=== PATIENT | male | born 1965 | race Caucasian/White ===

== ENCOUNTER 2021-11-07 13:23 | Outpatient (CLI) | payer BC, SELFPAY | END 2021-11-07 13:24 | disposition home or self-care (01) | PROVIDERS: PCP Family Medicine; Visit Provider Nurse Practitioner Family | DX: Q82.0 Hereditary lymphedema (principal); I87.331 Chronic venous hypertension (idiopathic) with ulcer and inflammation of right lower extremity; L97.812 Non-pressure chronic ulcer of other part of right lower leg with fat layer exposed | CPT/HCPCS: 11042; 11045; 99213 ==

== ENCOUNTER 2021-11-14 13:08 | Outpatient (CLI) | payer BC, SELFPAY | END 2021-11-14 13:09 | disposition home or self-care (01) | LOC: WOUND 13:08 | PROVIDERS: PCP Family Medicine; Visit Provider Nurse Practitioner Family | DX: I87.331 Chronic venous hypertension (idiopathic) with ulcer and inflammation of right lower extremity (principal); L97.812 Non-pressure chronic ulcer of other part of right lower leg with fat layer exposed; I89.0 Lymphedema, not elsewhere classified; L97.512 Non-pressure chronic ulcer of other part of right foot with fat layer exposed; L03.031 Cellulitis of right toe | CPT/HCPCS: 11042; 11045; 17250 ==

== ENCOUNTER 2021-11-21 12:53 | Outpatient (CLI) | payer BC, SELFPAY | END 2021-11-21 12:54 | disposition home or self-care (01) | PROVIDERS: PCP Family Medicine; Visit Provider Nurse Practitioner Family | DX: I87.331 Chronic venous hypertension (idiopathic) with ulcer and inflammation of right lower extremity (principal); L97.812 Non-pressure chronic ulcer of other part of right lower leg with fat layer exposed; E13.9 Other specified diabetes mellitus without complications | CPT/HCPCS: 11042; 11045 ==

== ENCOUNTER 2021-12-01 08:26 | Outpatient (CLI) | payer BC, SELFPAY | END 2021-12-01 08:27 | disposition home or self-care (01) | LOC: WOUND 08:26 | PROVIDERS: PCP Family Medicine; Visit Provider Physician Assistant Surgical | DX: I87.331 Chronic venous hypertension (idiopathic) with ulcer and inflammation of right lower extremity (principal); L97.812 Non-pressure chronic ulcer of other part of right lower leg with fat layer exposed; Q82.0 Hereditary lymphedema | CPT/HCPCS: 11042; 11045 ==

== ENCOUNTER 2021-12-05 13:08 | Outpatient (CLI) | payer BC, SELFPAY | END 2021-12-05 13:09 | disposition home or self-care (01) | LOC: WOUND 13:09 | PROVIDERS: PCP Family Medicine; Visit Provider Nurse Practitioner Family | DX: I87.331 Chronic venous hypertension (idiopathic) with ulcer and inflammation of right lower extremity (principal); L97.812 Non-pressure chronic ulcer of other part of right lower leg with fat layer exposed; E13.621 Other specified diabetes mellitus with foot ulcer; L97.512 Non-pressure chronic ulcer of other part of right foot with fat layer exposed | CPT/HCPCS: 11042; 11045; 97597 ==

== ENCOUNTER 2021-12-12 14:19 | Outpatient (CLI) | payer BC, SELFPAY | END 2021-12-12 14:20 | disposition home or self-care (01) | LOC: WOUND 14:20 | PROVIDERS: PCP Family Medicine; Visit Provider Nurse Practitioner Family | DX: I87.331 Chronic venous hypertension (idiopathic) with ulcer and inflammation of right lower extremity (principal); L97.812 Non-pressure chronic ulcer of other part of right lower leg with fat layer exposed; Q82.0 Hereditary lymphedema | CPT/HCPCS: 11042; 11045 ==

== ENCOUNTER 2021-12-26 14:17 | Outpatient (CLI) | payer BC, SELFPAY | END 2021-12-26 14:18 | disposition home or self-care (01) | LOC: WOUND 14:17 | PROVIDERS: PCP Family Medicine; Visit Provider Nurse Practitioner Family | DX: I87.331 Chronic venous hypertension (idiopathic) with ulcer and inflammation of right lower extremity (principal); L97.812 Non-pressure chronic ulcer of other part of right lower leg with fat layer exposed | CPT/HCPCS: 11042; 11045 ==

== ENCOUNTER 2022-01-09 14:15 | Outpatient (CLI) | payer BC, SELFPAY | END 2022-01-09 14:16 | disposition home or self-care (01) | LOC: WOUND 14:15 | PROVIDERS: PCP Family Medicine; Visit Provider Nurse Practitioner Family | DX: I87.331 Chronic venous hypertension (idiopathic) with ulcer and inflammation of right lower extremity (principal); L97.812 Non-pressure chronic ulcer of other part of right lower leg with fat layer exposed | CPT/HCPCS: 11042; 11045 ==

== ENCOUNTER 2022-01-23 14:05 | Outpatient (CLI) | payer BC, SELFPAY | END 2022-01-23 14:06 | disposition home or self-care (01) | LOC: WOUND 14:05 | PROVIDERS: PCP Family Medicine; Visit Provider Nurse Practitioner Family | DX: I87.331 Chronic venous hypertension (idiopathic) with ulcer and inflammation of right lower extremity (principal); L97.512 Non-pressure chronic ulcer of other part of right foot with fat layer exposed; Q82.0 Hereditary lymphedema | CPT/HCPCS: 11042; 11045 ==

== ENCOUNTER 2022-01-23 15:41 | Outpatient (CLI) | payer BC, SELFPAY | END 2022-01-23 15:42 | disposition home or self-care (01) | LOC: LAB 15:43 | PROVIDERS: PCP Family Medicine; Visit Provider Nurse Practitioner Family | DX: L97.512 Non-pressure chronic ulcer of other part of right foot with fat layer exposed (principal); B96.5 Pseudomonas (aeruginosa) (mallei) (pseudomallei) as the cause of diseases classified elsewhere; I87.331 Chronic venous hypertension (idiopathic) with ulcer and inflammation of right lower extremity | CPT/HCPCS: 87070; 87186 ==

== ENCOUNTER 2022-01-30 14:31 | Outpatient (CLI) | payer BC, SELFPAY | END 2022-01-30 14:32 | disposition home or self-care (01) | PROVIDERS: PCP Family Medicine; Visit Provider Nurse Practitioner Family | DX: I87.331 Chronic venous hypertension (idiopathic) with ulcer and inflammation of right lower extremity (principal); L97.812 Non-pressure chronic ulcer of other part of right lower leg with fat layer exposed; I89.0 Lymphedema, not elsewhere classified | CPT/HCPCS: 11042; 11045 ==

== ENCOUNTER 2022-02-06 14:18 | Outpatient (CLI) | payer BC, SELFPAY | END 2022-02-06 14:19 | disposition home or self-care (01) | LOC: WOUND 14:18 | PROVIDERS: PCP Family Medicine; Visit Provider Nurse Practitioner Family | DX: I87.331 Chronic venous hypertension (idiopathic) with ulcer and inflammation of right lower extremity (principal); L97.512 Non-pressure chronic ulcer of other part of right foot with fat layer exposed; I89.0 Lymphedema, not elsewhere classified | CPT/HCPCS: 11042; 11045 ==

== ENCOUNTER 2022-02-13 14:20 | Outpatient (CLI) | payer BC, SELFPAY | END 2022-02-13 14:21 | disposition home or self-care (01) | PROVIDERS: PCP Family Medicine; Visit Provider Nurse Practitioner Family | DX: I87.331 Chronic venous hypertension (idiopathic) with ulcer and inflammation of right lower extremity (principal); L97.812 Non-pressure chronic ulcer of other part of right lower leg with fat layer exposed; I89.0 Lymphedema, not elsewhere classified | CPT/HCPCS: 11042; 11045 ==

== ENCOUNTER 2022-02-16 15:11 | Outpatient (CLI) | payer BC, SELFPAY | END 2022-02-16 15:12 | disposition home or self-care (01) | LOC: WOUND 15:11 | PROVIDERS: PCP Family Medicine; Visit Provider Nurse Practitioner Family | DX: I87.331 Chronic venous hypertension (idiopathic) with ulcer and inflammation of right lower extremity (principal); L97.818 Non-pressure chronic ulcer of other part of right lower leg with other specified severity | CPT/HCPCS: 29581 ==

== ENCOUNTER 2022-03-06 14:24 | Outpatient (CLI) | payer MEDICARE, MEDICAID, SELFPAY | END 2022-03-06 14:25 | disposition home or self-care (01) | LOC: WOUND 14:24 | PROVIDERS: PCP Family Medicine; Visit Provider Nurse Practitioner Family | DX: I87.331 Chronic venous hypertension (idiopathic) with ulcer and inflammation of right lower extremity (principal); L97.512 Non-pressure chronic ulcer of other part of right foot with fat layer exposed; Q82.0 Hereditary lymphedema | CPT/HCPCS: 11042; 11045 ==

== ENCOUNTER 2022-03-20 14:04 | Outpatient (CLI) | payer MEDICARE, BC, MEDICAID, SELFPAY | END 2022-03-20 14:05 | disposition home or self-care (01) | LOC: WOUND 14:04 | PROVIDERS: PCP Family Medicine; Visit Provider Nurse Practitioner Family | DX: I87.331 Chronic venous hypertension (idiopathic) with ulcer and inflammation of right lower extremity (principal); L97.512 Non-pressure chronic ulcer of other part of right foot with fat layer exposed; Q82.0 Hereditary lymphedema | CPT/HCPCS: 97597; 97598 ==

== ENCOUNTER 2022-04-17 15:03 | Outpatient (CLI) | payer MEDICARE, MEDICAID, SELFPAY | END 2022-04-17 15:04 | disposition home or self-care (01) | LOC: WOUND 15:06 | PROVIDERS: PCP Family Medicine; Visit Provider Nurse Practitioner Family | DX: I87.331 Chronic venous hypertension (idiopathic) with ulcer and inflammation of right lower extremity (principal); L97.512 Non-pressure chronic ulcer of other part of right foot with fat layer exposed | CPT/HCPCS: 99213 ==

== ENCOUNTER 2022-07-16 20:39 | Outpatient (CLI) | payer MEDICARE, MEDICAID, SELFPAY | END 2022-07-16 20:40 | disposition home or self-care (01) | PROVIDERS: PCP Family Medicine | DX: G47.33 Obstructive sleep apnea (adult) (pediatric) (principal) | CPT/HCPCS: 95810 ==

== ENCOUNTER 2022-11-01 13:57 | Outpatient (CLI) | payer MEDICARE, MEDICAID, SELFPAY | END 2022-11-01 13:58 | disposition home or self-care (01) | PROVIDERS: PCP Family Medicine; Visit Provider Family Medicine | DX: I87.311 Chronic venous hypertension (idiopathic) with ulcer of right lower extremity (principal); L97.212 Non-pressure chronic ulcer of right calf with fat layer exposed; E66.01 Morbid (severe) obesity due to excess calories; Z68.44 Body mass index [BMI] 60.0-69.9, adult | CPT/HCPCS: 11042; 11045; 99213 ==

== ENCOUNTER 2022-11-15 13:55 | Outpatient (CLI) | payer MEDICARE, MEDICAID, SELFPAY ==
[2022-11-15 15:12] LABS: Hemoglobin A1C* 6.02 % (0-5.6)
[2022-11-17 14:31] LABS: Prealbumin 15.6 mg/dL (20.0-40.0)
[2022-11-18 02:48] LABS: Zinc, Serum/Plasma 58.8 ug/dL (60.0-120.0)
== END 2022-11-15 13:56 | disposition home or self-care (01) ==
LOC: WOUND 13:55
PROVIDERS: PCP Family Medicine; Visit Provider Nurse Practitioner Family
DX: I87.311 Chronic venous hypertension (idiopathic) with ulcer of right lower extremity (principal); L97.212 Non-pressure chronic ulcer of right calf with fat layer exposed; I10 Essential (primary) hypertension; R73.03 Prediabetes; R60.0 Localized edema; M79.661 Pain in right lower leg
CPT/HCPCS: 36415; 83036; 84134; 84630; 87070; 87077; 87186; 99213

== ENCOUNTER 2022-12-14 13:23 | Outpatient (CLI) | payer MEDICARE, MEDICAID, SELFPAY | END 2022-12-14 13:24 | disposition home or self-care (01) | LOC: WOUND 13:24 | PROVIDERS: PCP Family Medicine; Visit Provider Nurse Practitioner Family | DX: I87.311 Chronic venous hypertension (idiopathic) with ulcer of right lower extremity (principal); L97.212 Non-pressure chronic ulcer of right calf with fat layer exposed; R73.03 Prediabetes; E66.01 Morbid (severe) obesity due to excess calories; Z68.44 Body mass index [BMI] 60.0-69.9, adult | CPT/HCPCS: 99213 ==

== ENCOUNTER 2022-12-24 14:40 | Outpatient (CLI) | payer MEDICARE, MEDICAID, SELFPAY | END 2022-12-24 14:41 | disposition home or self-care (01) | LOC: WOUND 14:41 | PROVIDERS: PCP Family Medicine; Visit Provider Nurse Practitioner Family | DX: I87.311 Chronic venous hypertension (idiopathic) with ulcer of right lower extremity (principal); L97.212 Non-pressure chronic ulcer of right calf with fat layer exposed; I89.0 Lymphedema, not elsewhere classified; R73.03 Prediabetes; I10 Essential (primary) hypertension; E66.01 Morbid (severe) obesity due to excess calories; Z68.44 Body mass index [BMI] 60.0-69.9, adult | CPT/HCPCS: 97602; 99213 ==

== ENCOUNTER 2023-01-08 15:45 | Outpatient (CLI) | payer MEDICARE, MEDICAID, SELFPAY | END 2023-01-08 15:46 | disposition home or self-care (01) | LOC: WOUND 15:46 | PROVIDERS: PCP Family Medicine; Visit Provider Nurse Practitioner Family | DX: I87.311 Chronic venous hypertension (idiopathic) with ulcer of right lower extremity (principal); L97.212 Non-pressure chronic ulcer of right calf with fat layer exposed; R73.03 Prediabetes; E66.01 Morbid (severe) obesity due to excess calories; Z68.44 Body mass index [BMI] 60.0-69.9, adult | CPT/HCPCS: 99213 ==

== ENCOUNTER 2023-01-22 10:31 | Outpatient (CLI) | payer MEDICARE, MEDICAID, SELFPAY | END 2023-01-22 10:32 | disposition home or self-care (01) | LOC: WOUND 10:32 | PROVIDERS: PCP Family Medicine; Visit Provider Nurse Practitioner Family | DX: I87.313 Chronic venous hypertension (idiopathic) with ulcer of bilateral lower extremity (principal); L97.212 Non-pressure chronic ulcer of right calf with fat layer exposed; L97.822 Non-pressure chronic ulcer of other part of left lower leg with fat layer exposed; R73.03 Prediabetes | CPT/HCPCS: 99213 ==

== ENCOUNTER 2023-02-05 10:31 | Outpatient (CLI) | payer MEDICARE, MEDICAID, SELFPAY | END 2023-02-05 10:32 | disposition home or self-care (01) | LOC: WOUND 10:31 | PROVIDERS: PCP Family Medicine; Visit Provider Nurse Practitioner Family | DX: I87.313 Chronic venous hypertension (idiopathic) with ulcer of bilateral lower extremity (principal); I89.0 Lymphedema, not elsewhere classified; L97.212 Non-pressure chronic ulcer of right calf with fat layer exposed; L97.822 Non-pressure chronic ulcer of other part of left lower leg with fat layer exposed; R73.03 Prediabetes | CPT/HCPCS: 97602; 99214 ==

== ENCOUNTER 2023-02-19 10:40 | Outpatient (CLI) | payer MEDICARE, MEDICAID, SELFPAY | END 2023-02-19 10:41 | disposition home or self-care (01) | LOC: WOUND 10:41 | PROVIDERS: PCP Family Medicine; Visit Provider Nurse Practitioner Family | DX: I89.0 Lymphedema, not elsewhere classified (principal); L97.212 Non-pressure chronic ulcer of right calf with fat layer exposed | CPT/HCPCS: 97602; 99214 ==

== ENCOUNTER 2023-03-05 10:32 | Outpatient (CLI) | payer MEDICARE, MEDICAID, SELFPAY | END 2023-03-05 10:33 | disposition home or self-care (01) | LOC: WOUND 10:33 | PROVIDERS: PCP Family Medicine; Visit Provider Nurse Practitioner Family | DX: I87.313 Chronic venous hypertension (idiopathic) with ulcer of bilateral lower extremity (principal); I89.0 Lymphedema, not elsewhere classified; L97.818 Non-pressure chronic ulcer of other part of right lower leg with other specified severity; L97.828 Non-pressure chronic ulcer of other part of left lower leg with other specified severity; L30.8 Other specified dermatitis; R73.03 Prediabetes | CPT/HCPCS: 97602; 99213 ==

== ENCOUNTER 2023-03-19 10:32 | Outpatient (CLI) | payer MEDICARE, MEDICAID, SELFPAY | END 2023-03-19 10:33 | disposition home or self-care (01) | LOC: WOUND 10:32 | PROVIDERS: PCP Family Medicine; Visit Provider Family Medicine | DX: I89.0 Lymphedema, not elsewhere classified (principal); L97.828 Non-pressure chronic ulcer of other part of left lower leg with other specified severity | CPT/HCPCS: 97597; 97598 ==

== ENCOUNTER 2023-04-02 10:36 | Outpatient (CLI) | payer MEDICARE, MEDICAID, SELFPAY | END 2023-04-02 10:37 | disposition home or self-care (01) | LOC: WOUND 10:36 | PROVIDERS: PCP Family Medicine; Visit Provider Nurse Practitioner Family | DX: I89.0 Lymphedema, not elsewhere classified (principal); I87.312 Chronic venous hypertension (idiopathic) with ulcer of left lower extremity; L97.828 Non-pressure chronic ulcer of other part of left lower leg with other specified severity | CPT/HCPCS: 99213 ==

== ENCOUNTER 2024-04-07 14:15 | Outpatient (RCR) | payer MEDICARE, MEDICAID, SELFPAY | END 2024-06-10 08:35 | disposition home or self-care (01) | PROVIDERS: PCP Family Medicine; Visit Provider Family Medicine | DX: I89.9 Noninfective disorder of lymphatic vessels and lymph nodes, unspecified (principal); Z51.89 Encounter for other specified aftercare | CPT/HCPCS: 97140; 97166 ==

== ENCOUNTER 2024-04-26 18:15 | Inpatient (IN) | payer MEDICARE, SELFPAY ==
[2024-04-26] VITALS (22 sets, daily range): BP systolic 101–157; BP diastolic 49–88; PULSE 101–127; RESP 20–22; TEMP 36.1–36.8; O2SAT 83–91; BMI 57.8; BMI 65.4
--- NOTE | 2024-04-26 18:40 | CRLHL7_ITS ---
For Patients: As a result of the Cures Act, medical imaging exams and procedure reports are released immediately into your electronic medical record. You may view this report before your referring provider. If you have questions, please contact your health care provider. INDICATION: Cough, hypoxia.. TECHNIQUE: Chest 1 views. COMPARISON: None. FINDINGS: Cardiovascular and mediastinum: Prominent heart size and vascular congestion accentuated by low lung volumes. Lungs and pleural spaces: Elevation of the right hemidiaphragm with interstitial prominence. No sign of pleural effusion. No pneumothorax. Bones and soft tissues: No significant findings. IMPRESSION: Low lung volumes with interstitial prominence. Dictated by Juan Miguel Jaimes MD @ 04/26/2024 7:32:45 PM (Electronically Signed)
--- NOTE | 2024-04-26 18:44 | ED.SOB ---
HPI - SOB/Dyspnea General Chief Complaint: Shortness of Breath/Dyspnea Stated Complaint: can't breathe, oxygen at 80 Time Seen by Provider: 04/26/24 18:27 History of Present Illness HPI Narrative: This 59-year-old male comes in reporting shortness of breath with cough over the past few days. He states that someone near him in his family has had RSV. He is a smoker. He has obstructive sleep apnea. He is morbidly obese weighing over 400 lb. He does not report any fevers or chest pain. He is able to speak in complete sentences but arrives here with oximetry at 85% on room air. He has increased heart rate and respiratory rate. He states that he has an oximeter at home and measured 80% at 1 point. Related Data Home Medications ?Medication ?Instructions ?Recorded ?Confirmed albuterol sulfate 90 mcg/actuation inhalation 04/26/24 aerosol inhaler (Ventolin HFA) betamethasone dipropionate 0.05 % applic topical 04/26/24 topical cream chlorthalidone 25 mg tablet 25 mg PO DAILY 04/26/24 04/26/24 lisinopril 10 mg tablet 10 mg PO DAILY 04/26/24 04/26/24 nystatin 100,000 unit/gram topical 1 applic topical BID 04/26/24 04/26/24 cream Allergies Allergy/AdvReac Type Severity Reaction Status Date / Time adhesive Allergy Intermediate Blister Verified 04/26/24 18:28 varenicline (From Chantix) AdvReac Intermediate Hallucinati Verified 04/26/24 18:28 ng bacitracin AdvReac Mild skin Verified 04/26/24 18:28 break down Review of Systems Status of ROS: Reports: 10 or more systems reviewed and unremarkable except as noted in History and below Narrative: Constitutional: No fevers, no weight gain or loss. Eyes: No discharge. No vision changes. HENT: No congestion, no sore throat, no ear pain. Cardiovascular: No chest pain, no palpitations. Respiratory: Shortness of breath and cough. Gastrointestinal: No abdominal pain, no vomiting, no diarrhea. Genitourinary: No dysuria, no hematuria. Musculoskeletal: Normal range of motion. Skin: No rashes, no pruritis. Neurological: No dizziness, weakness, sensory change, speech change. Endo/Heme/Allergies: No bruising or bleeding. No polydipsia. Pysch: no suicidality, no anxiety, no insomnia. All other systems reviewed and are negative. Exam Narrative: Exam Narrative: Constitutional: Well-developed, well-nourished, no acute distress. HEENT: Normocephalic, atraumatic. Neck: Normal range of motion. Nontender. Supple. Heart: Regular. No murmurs. Tachycardia. Intact distal pulses. Lungs: Bilateral rhonchi with wheezes. No chest discomfort. Abdomen: Normal bowel sounds. Nontender. No rebound tenderness. Genitalia: Deferred. Back: No midline tenderness. Normal range of motion. Extremities: Chronic venous stasis ulcers on the lower extremities with large edema. Skin: Intact. No rash. Warm. No erythema or pallor. Neurologic: No altered sensation. No weakness. Alert and oriented. Psychiatric: No suicidality. No anxiety or depression. No insomnia. Nursing notes and vitals signs are reviewed. Const: Vital Signs, click to edit/add: Vital Signs - 24 hr 04/26/24 18:20 Temperature 98.2 F Pulse Rate [Pulse Oximeter] 108 H Respiratory Rate 20 Blood Pressure [Ri ght Upper Arm] 157/84 H Pulse Oximetry 88 Oxygen Delivery Me thod Room Air Course Vital Signs Vital signs: Initial Vital Signs Temperature 98.2 F 04/26/24 18:20 Temperature Source Temporal Artery Scan 04/26/24 18:20 Pulse Rate 108 H 04/26/24 18:20 Respiratory Rate 20 04/26/24 18:20 Blood Pressure 157/84 H 04/26/24 18:20 Blood Pressure Mean 108 H 04/26/24 18:20 Blood Pressure Position Sitting 04/26/24 18:20 Pulse Oximetry 88 04/26/24 18:20 Oxygen Delivery Method Room Air 04/26/24 18:20 Vital Signs Temperature 98.2 F 04/26/24 18:20 Pulse Rate 108 H 04/26/24 18:20 Respiratory Rate 20 04/26/24 18:20 Blood Pressure 157/84 H 04/26/24 18:20 Pulse Oximetry 88 04/26/24 18:20 Oxygen Delivery Method Room Air 04/26/24 18:20 Temperature 98.2 F 04/26/24 18:20 Pulse Rate 108 H 04/26/24 18:20 Respiratory Rate 20 04/26/24 18:20 Blood Pressure 157/84 H 12/22/24 18:20 Pulse Oximetry 88 04/26/24 18:20 Oxygen Delivery Method Room Air 04/26/24 18:20 MDM - SOB/Dyspnea MDM Narrative Medical decision making narrative: This patient arrives with shortness of breath and hypoxia with oximetry at 85% on room air. He has morbid obesity with obstructive sleep apnea and has resumes smoking over the past couple years. He states that is typical oximetry is around 92% on room air. Chest x-ray is obtained and shows no obvious sign of infiltrate. An IV was placed and labs are acquired. His white count is in normal range. He is positive on the nasal pharyngeal swab for RSV. His EKG and troponin are reassuring. His D-dimer does return elevated a bit at 0.[address] imaging with IV contrast is arranged. I spoke with the hospitalist on-call who agrees to his admission and states that he can come directly there upon completion of CT imaging. The patient is receiving a couple L of oxygen by nasal cannula. His VBG is returned with acceptable pH range. His partial pressures of oxygen, carbon dioxide, and bicarb are all elevated. Lab Data Labs: Lab Results 04/26/24 04/26/24 04/26/24 Range/Units 18:42 18:52 18:53 D-Dimer Quant (PE/DVT) 0.75 H (0.00-0.50) ug/ml VBG pH 7.353 (7.32-7.43) VBG pCO2 60 H (40-50) mmHG VBG pO2 61.0 H (25-47) mmHG VBG HCO3 33 H (21-28) mmol/L Sodium 137 (135-149) mmol/L Potassium 3.6 (3.6-5.1) mmol/L Chloride 98 (96-114) mmol/L Carbon Dioxide 32 (20-32) mmol/L Anion Gap 7 (7-15) mEq/L BUN 11 (7-30) mg/dL Creatinine 0.6 (0.5-1.5) mg/dL Estimated Creat Clear 136.88 Estimated GFR 111 ml/min Glucose 143 H (60-115) mg/dL Calcium 8.9 (8.4-10.6) mg/dL Troponin I < 0.01 L (0.01-0.04) ng/mL SARS-CoV-2 (PCR) Negative SARS-CoV-2 (Negative) Influenza Type A (PCR) Negative PCR FLU A (Negative) Influenza Type B (PCR) Negative PCR FLU B (Negative) RSV (PCR) POSITIVE PCR RSV A (Negative) Imaging Data Chest x-ray: Radiologist's impression: Low lung volumes with interstitial prominence. ECG Data Interpretation: Sinus tachycardia, rate 105 beats per minute. First-degree AV block. There are no specific ST or T-wave abnormalities. Discharge Plan Discharge Clinical Impression: Respiratory syncytial virus (RSV), Venous ulcer of right lower extremity with varicose veins, Morbid obesity with BMI of 60.0-69.9, adult Patient Disposition: Admitted As Observation Condition: Unchanged Prescriptions: No Action chlorthalidone 25 mg tablet 25 mg PO DAILY nystatin 100,000 unit/gram cream 1 applic topical BID lisinopril 10 mg tablet 10 mg PO DAILY betamethasone dipropionate 0.05 % cream topical albuterol sulfate [Ventolin HFA] 90 mcg/actuation HFA aerosol inhaler inhalation Follow Up/Referrals: Joseph Guo MD [Primary Care Provider] -
[2024-04-26 19:02] LABS: HCO3 VBG 33 mmol/L (21-28); PCO2 VBG 60 mmHG (40-50); pH VBG 7.353 (7.32-7.43)
[2024-04-26 19:17] LABS: Chloride* 98 mmol/L (96-114); Potassium* 3.6 mmol/L (3.6-5.1); Sodium* 137 mmol/L (135-149)
[2024-04-26 19:20] LABS: Anion Gap 7 mEq/L (7-15); Blood Urea Nitrogen* 11 mg/dL (7-30); Carbon Dioxide* 32 mmol/L (20-32); Creatinine* 0.6 mg/dL (0.5-1.5); Est. Creatinine Clearance* 136.88; Estimated Glomerular Filt Rate 111 ml/min
[2024-04-26 19:21] LABS: Calcium* 8.9 mg/dL (8.4-10.6); Glucose* 143 mg/dL (60-115)
[2024-04-26 19:32] LABS: PCR FLU A Negative PCR FLU A (Negative); PCR FLU B Negative PCR FLU B (Negative); PCR RSV POSITIVE PCR RSV (Negative); SARS PCR* Negative SARS-CoV-2 (Negative)
[2024-04-26 19:34] LABS: Troponin I* < 0.01 ng/mL (0.01-0.04)
[2024-04-26 19:45] LABS: D Dimer Quantitative* 0.75 ug/ml (0.00-0.50)
--- NOTE | 2024-04-26 19:58 | CRLHL7_ITS ---
For Patients: As a result of the Century Cures Act, medical imaging exams and procedure reports are released immediately into your electronic medical record. You may view this report before your referring provider. If you have questions, please contact your health care provider. INDICATION: Shortness of breath. TECHNIQUE: CT chest PE was acquired with 95 cc Isovue 370 IV contrast. COMPARISON: Chest radiograph 04/26/2024. FINDINGS: Heart and vasculature: Contrast opacification of the pulmonary arterial tree is adequate. Evaluation limited by respiratory motion but with no sign of pulmonary embolism to the segmental level. Heart size is normal. Thoracic aorta and pulmonary artery are normal in caliber. Lungs and pleura: Right hemidiaphragm elevation with right basilar atelectasis including near complete collapse of the right middle lobe. Patchy ground-glass opacities in the bilateral upper lobes with tree-in-bud nodularity in the right upper lobe. No pleural effusions, pleural thickening, or pneumothorax. Lymph nodes/mediastinum: No mediastinal, hilar, or axillary adenopathy. Thyroid gland is unremarkable. Chest wall: No masses. Bilateral gynecomastia. Upper abdomen: No acute findings. Bones: Degenerative changes. IMPRESSION: 1. No evidence of pulmonary embolism to the segmental level. 2. Bilateral upper lobe patchy ground-glass opacities with right upper lobe tree-in-bud nodularity, likely representing an infectious/inflammatory process. Please note that all CT scans at this facility use dose modulation, iterative reconstruction, and/or weight-based dosing when appropriate to reduce radiation dose to as low as reasonably achievable. Dictated by Aj Conteh MD @ 04/26/2024 9:16:17 PM (Electronically Signed)
--- NOTE | 2024-04-26 21:24 | P.IMHP_ITS ---
Hospitalist- H&P: HPI History of Present Illness Date Seen: 04/26/24 Chief complaint: can't breathe, oxygen at Narrative: Sarabjit Varghese is a 59 year old male presented to the emergency room today with difficulty breathing. Grandson recently diagnosed with RSV, over the past 1-2 days has noted cough, chills, and an oximetry reading of 80% on RA at home. ER course and findings: - + RSV - hypoxic with oxygen saturation as low as 83% in the emergency room - no PE on CTA chest, + bilateral upper lobe patchy GGOs - elevated CO2 on VBG Given acute hypoxic respiratory failure and need for oxygen use, he is admitted to the hospital. Daughter Deuce at bedside for H&P. Dao has a history of chronic (>20 years) RLE leg wound, COPD, tobacco use, BMI 65, essential HTN. Recently saw Endocrinology for fatigue/hypotestosteronemia workup. Dr. Guo at [facility] is PCP. Review of Systems Status of ROS: Reports: 10 or more systems reviewed and unremarkable except as noted in History and below Narrative: - sleeps in chair, upright - no CP - utilizes cane for ambulation [facility] Medical History (Updated 04/26/24 @ 22:50 by Hanna Tejeda MD) Tobacco use ?Z72.0 - Tobacco use (ICD-10) Pre-diabetes ?R73.03 - Prediabetes (ICD-10) Venous ulcer of right lower extremity with varicose veins ?I83.019 - Varicose veins of right lower extremity with ulcer of unspecified site (ICD-10) ?L97.919 - Non-pressure chronic ulcer of unspecified part of right lower leg with unspecified severity (ICD-10) GERD (gastroesophageal reflux disease) ?K21.9 - Gastro-esophageal reflux disease without esophagitis (ICD-10) FAYE (obstructive sleep apnea) ?G47.33 - Obstructive sleep apnea (adult) (pediatric) (ICD-10) Morbid obesity with BMI of 60.0-69.9, adult ?E66.01 - Morbid (severe) obesity due to excess calories (ICD-10) ?Z68.44 - Body mass index [BMI] 60.0-69.9, adult (ICD-10) Surgical History (Updated 04/26/24 @ 21:28 by Hanna Tejeda MD) 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 - Other diseases of vocal cords (ICD-10) History of arthroscopy of left knee ?Z98.890 - Other specified postprocedural states (ICD-10) Social History What is your current living situation?: I presently have a place to live Problems where you live: no known problems Problems where you live details: N/A In the past 12 months, utilities in danger of being shut off: no In past 12 months, lack of transportation kept you from medical appts, meetings, work, or getting things needed for daily living: no In the past 12 mos, have been you worried that your food would run out before you had money to buy more?: never true In the past 12 mos, the food you bought just didn't last and you didn't have money to buy more?: never true Highest level of school completed/degree received: GED or equivalent Smoking Status: Current every day smoker Second hand tobacco smoke exposure: No How often do you have a drink containing alcohol: monthly or less Alcohol type: hard liquor How many standard drinks containing alcohol do you have on a typical day: 1 or 2 How often do you have six or more drinks on one occasion: Never AUDIT-C Alcohol total score: 1 Non-prescribed substance use: denies use Caffeine: Yes (Coffee) How often does anyone, including family, friends and others, physically hurt you : never How often does anyone, including family, friends and others, insult or talk down to you: never How often does anyone, including family, friends and others, threaten you with harm: never How often does anyone, including family, friends and others, scream or curse at you: never service: No Meds Home Medications and Allergies Home Medications ?Medication ?Instructions ?Recorded ?Confirmed ?Type albuterol sulfate 90 mcg/actuation inhalation 04/26/24 History aerosol inhaler (Ventolin HFA) betamethasone dipropionate 0.05 % applic topical 04/26/24 History topical cream chlorthalidone 25 mg tablet 25 mg PO DAILY 04/26/24 04/26/24 History lisinopril 10 mg tablet 10 mg PO DAILY 04/26/24 04/26/24 History nystatin 100,000 unit/gram topical 1 applic topical BID 04/26/24 04/26/24 History cream Allergies Allergy/AdvReac Type Severity Reaction Status Date / Time adhesive Allergy Intermediate Blister Verified 04/26/24 18:28 varenicline (From Chantix) AdvReac Intermediate Hallucinati Verified 04/26/24 18:28 ng bacitracin AdvReac Mild skin Verified 04/26/24 18:28 break down Exam Narrative: Exam Narrative: GEN: Alert and answering questions appropriately, does appear to get dyspneic after long sentences HEENT: EOMIs bilaterally, no scleral icterus CV: RRR, No concerning murmurs, distant heart sounds R: Rhonchi bilateral apices, mild expiratory wheeze Ext: Significant RLE edema, + pitting edema. Thickened skin with hyperpigmentation c/w PVD. Small amount of skin maceration with clear drainage, culture obtained Skin: No other concerning skin lesions or rashes on exposed skin Neuro: No focal deficits or resting tremor Psych: Appropriate Const: Vital Signs, click to edit/add: Vital Signs - 24 hr 04/26/24 18:20 04/26/24 18:42 04/26/24 18:44 Temperature 98.2 F Pulse Rate 110 H Pulse Rate [Pulse Oximeter] 108 H Respiratory Rate 20 Blood Pressure 136/83 Blood Pressure [Ri ght Upper Arm] 157/84 H Pulse Oximetry 88 83 L Oxygen Delivery Me thod Room Air Nasal Cannula Oxygen Flow Rate 2 04/26/24 18:45 04/26/24 19:00 04/26/24 19:05 Temperature Pulse Rate 104 H 105 H 107 H Pulse Rate [Pulse Oximeter] Respiratory Rate Blood Pressure 116/49 L Blood Pressure [Ri ght Upper Arm] Pulse Oximetry 88 88 88 Oxygen Delivery Me thod Nasal Cannula Nasal Cannula Nasal Cannula Oxygen Flow Rate 2 2 2 04/26/24 19:15 04/26/24 19:30 04/26/24 19:32 Temperature Pulse Rate 106 H 109 H 106 H Pulse Rate [Pulse Oximeter] Respiratory Rate Blood Pressure 112/87 Blood Pressure [Ri ght Upper Arm] Pulse Oximetry 86 L 88 86 L Oxygen Delivery Me thod Nasal Cannula Nasal Cannula Nasal Cannula Oxygen Flow Rate 2 2 2 04/26/24 19:45 04/26/24 20:00 04/26/24 20:01 Temperature Pulse Rate 109 H 107 H Pulse Rate [Pulse Oximeter] Respiratory Rate Blood Pressure 101/72 Blood Pressure [Ri ght Upper Arm] Pulse Oximetry 88 88 Oxygen Delivery Me thod Nasal Cannula Nasal Cannula Nasal Cannula Oxygen Flow Rate 2 2 2 04/26/24 20:15 04/26/24 20:31 04/26/24 20:33 Temperature Pulse Rate 106 H 108 H 119 H Pulse Rate [Pulse Oximeter] Respiratory Rate Blood Pressure 132/88 Blood Pressure [Ri ght Upper Arm] Pulse Oximetry 90 88 90 Oxygen Delivery Me thod Nasal Cannula Nasal Cannula Nasal Cannula Oxygen Flow Rate 2 2 2 04/26/24 20:34 04/26/24 20:45 Temperature Pulse Rate 127 H 108 H Pulse Rate [Pulse Oximeter] Respiratory Rate Blood Pressure Blood Pressure [Ri ght Upper Arm] Pulse Oximetry 91 91 Oxygen Delivery Me thod Nasal Cannula Nasal Cannula Oxygen Flow Rate 3 3 Hospitalist - H&P: Result Labs Labs: [facility] 04/26/24 18:52 Sodium 137 Potassium 3.6 Chloride 98 Carbon Dioxide 32 BUN 11 Creatinine 0.6 Glucose 143 H Calcium 8.9 Cardiac Enzymes 04/26/24 Range/Units 18:52 Troponin I < 0.01 L (0.01-0.04) ng/mL Assessment and Plan Assessment and plan (1) Acute hypoxic respiratory failure: Problem comment: - 2/2 RSV, comorbidities include FAYE and COPD Status: Acute (2) Respiratory syncytial virus (RSV): Problem comment: - supportive cares, supplemental oxygen as needed, RT referral Status: Acute (3) Hypertension: Problem comment: - continue home medications Status: Acute (4) Tobacco use: Problem comment: - recommend cessation, prn nicotine patch Status: Acute (5) Venous ulcer of right lower extremity with varicose veins: Problem comment: - patient has previously seen the wound clinic, not interested in re- establishing care - currently manages at home with daughter: prn steroid and/or antifungal, light application of Vanicream, HS wraps Status: Acute Plan - per above Total Time Spent Total Time Spent: 52 minutes: reviewing patient with ER staff, review of records/imaging, updating chart, smoking cessation counseling, plan of care update to patient and family
[2024-04-26] MEDS: TRIAMCINOLONE ACETONIDE CREAM 0.1 % 1 APPLIC TOPICAL (23:25)
[2024-04-26] MEDS: NYSTATIN CREAM 30 GM 1 APPLIC TOPICAL (23:25)
[2024-04-27] VITALS (14 sets, daily range): BP systolic 107–168; BP diastolic 65–98; PULSE 71–116; RESP 21–27; TEMP 36.1–37; O2SAT 86–91
--- NOTE | 2024-04-27 00:45 | PC.NURSE ---
Unable to accurately measure 0010 void as pt noted to have urinated on bathroom floor as he has urgency with urination.
--- NOTE | 2024-04-27 06:38 | PC.NURSE ---
Addendum entered by Salina Murray RN 04/27/24 07:37: Cash Reconciliation Specialist updated day RN that pt's morning labs still need to be drawn once patient wakes up. NOC seed cone picker also aware of this. Original Note: End of shift note [id number]: Pt alert & oriented x 4. He is transferring/ambulating with home SPC and SBA due to oxygen tubing being trip hazard. Cash Reconciliation Specialist provided education regarding importance of using call light though pt hesitant to use call light- bed alarm on for safety when pt in bed. Pt denying pain when asked. Oxygen administered via NC at 3-4 LPM to maintain O2 sats >88% per order (pt hx of COPD). Oxygen saturation noted to dip to 85% on 3 LPM when pt sleeping. Therefore, oxygen increased to 4 LPM to maintain O2 sat of 88%. Pt also has FAYE though does not wear CPAP. Pt noting to be removing nasal cannula several times throughout the shift and also taking telemetry leads off. Pt noted to have urinated on bathroom floor due to hx of urinary urgency. IS education and encouragement provided though pt refused to do stating, ?That has never helped me before?. Pt would not allow RN to assess abdominal/groin folds. Wound care completed to RLE last evening- moderate amount of serous drainage observed to old dressing materials upon removal. Medicated creams applied per orders. Periwound to RLE noted to have maceration present. Tele with sinus tachycardia noted throughout the shift. Pt slept part of shift in bed though then moved to chair. Pt tolerating regular diet. Daughter reported that patient makes really weird noises in his sleep and gets into a deep sleep. electrophysiology technologist attempted to draw morning labs though pt making strange noises while raising arms in his sleep. Lights were already on, film writer called pt's name and performed sternal rub though pt still in deep sleep. electrophysiology technologist unable to draw labs due to pt raising arms and not being able to hold still. Will update day RN so that labs can be obtained once pt wakes up for the day. Pt refusing to wear gripper socks despite education provided. Pt has shortness of breath with exertion.
[2024-04-27] MEDS: IPRAT-ALBUT 0.5-2.5 MG/3 ML NEB 1 NEB IH ×2 (08:25→20:52)
[2024-04-27] MEDS: METHYLPREDNISOLONE SOD SUCC 62.5 MG/ML (125) 125 MG IVP (08:25)
[2024-04-27 08:33] LABS: HCO3 VBG 36 mmol/L (21-28); PO2 VBG 36.6 mmHG (25-47)
[2024-04-27 08:35] LABS: Basophils Absolute Auto 0.05 K/uL (0.00-0.30); Basophils Percent Auto 0.6 % (0.0-3.0); Eosinophils Absolute Auto 0.01 K/uL (0.00-0.50); Eosinophils Percent Auto 0.1 % (0.0-7.0); Hematocrit 51.9 % (37.0-53.0); Hemoglobin* 15.5 gm/dL (13.5-17.5); Immature Granulocytes Abs Auto 0.09 K/uL (0.00-0.30); Immature Granulocytes Pct Auto 1.1 %; Lymphocytes Percent Auto 12.7 % (20-44); Mean Corpuscular HGB Conc 30 gm/dL (32-36); Mean Corpuscular Hemoglobin 27 pg (26-34); Mean Corpuscular Volume 90 fL (80-100); Monocytes Percent Auto 9.2 % (0.0-11.0); Neutrophils Percent Auto 76.3 % (42.0-72.0); Platelet Count* 212 K/uL (140-440); RDW Coefficient of Variation % 15.2 % (11.5-15.5); Red Blood Count 5.75 m/uL (4.30-5.90); White Blood Count* 8.14 K/uL (4.50-11.00)
[2024-04-27 08:37] LABS: pH VBG 7.204 (7.32-7.43)
[2024-04-27 08:38] LABS: PCO2 VBG 91 mmHG (40-50)
[2024-04-27 08:42] LABS: Slide Review Reflex No
[2024-04-27 08:54] LABS: Chloride* 98 mmol/L (96-114)
[2024-04-27 08:55] LABS: Potassium* 4.4 mmol/L (3.6-5.1); Sodium* 140 mmol/L (135-149)
[2024-04-27 08:57] LABS: Creatinine* 0.6 mg/dL (0.5-1.5); Est. Creatinine Clearance* 136.88; Estimated Glomerular Filt Rate 111 ml/min
[2024-04-27 08:58] LABS: Anion Gap 7 mEq/L (7-15); Blood Urea Nitrogen* 11 mg/dL (7-30); Calcium* 8.6 mg/dL (8.4-10.6); Carbon Dioxide* 35 mmol/L (20-32); Glucose* 139 mg/dL (60-115)
--- NOTE | 2024-04-27 09:08 | PC.NURSE ---
Episode Note: Animal Husbandry Technician arrived in Pts room @ 0745. Upon assessment Pt was in reclining chair shouting in his sleep. Animal Husbandry Technician shouted Pts name and applied sternal rub to awake Pt. Pt was still unresponsive. Pt continued to shout and lift his arms up in the aliyah. YVETTE Rizo, walked in for assistance. Animal Husbandry Technician applied BP cuff: 124/81. Pt was on 4 L NC with O2 sat of 86%. Animal Husbandry Technician went to get assistance from SLY RIVERO. Animal Husbandry Technician then grabbed Dr. Kemp for assistance. Pt was in and out of consciousness at this point. Animal Husbandry Technician called lab and RT per MD orders. Pt was sitting at the edge of the chair as blood drawn was taken. Neb treatment was then given. RT arrived and put Pt on BIPAP. Pt was able to state but said that he was in [place], [place]. SLY RIVERO called family member. Dr. Kemp, RT, LT, and life insurance underwriter were in room as MD discussed with daughter on plan of care. Pt is now unit and shift handoff was given to SLY RIVERO.
[2024-04-27 09:16] LABS: Free T4 Free Thyroxine* 0.79 ng/dL (0.70-1.85)
[2024-04-27 09:26] LABS: HCO3 VBG 37 mmol/L (21-28); PO2 VBG 36.4 mmHG (25-47)
[2024-04-27] MEDS: cefTRIAXone 2 GM in 0.9 % SODIUM CHLORIDE Mini-bag 100 ML IVPB (09:29)
[2024-04-27 09:30] LABS: Thyroid Stimulating Hormone* 0.687 uIU/mL (0.270-4.20)
--- NOTE | 2024-04-27 09:44 | PC.NURSE ---
currently on bipap did not attempt to do this
[2024-04-27 09:47] LABS: PCO2 VBG 85 mmHG (40-50); pH VBG 7.248 (7.32-7.43)
[2024-04-27] MEDS: SODIUM CHLORIDE 0.9 % (FLUSH) 10 ML SYRINGE 5 ML IVF ×2 (09:57→20:52)
[2024-04-27] MEDS: AZITHROMYCIN 500 MG in 0.9 % SODIUM CHLORIDE 250 ml 250 ML 255 MG IVPB (10:04)
--- NOTE | 2024-04-27 10:45 | NUTR.NU ---
RDN with nutrition screen related to positive skin risk score and would present. Patient admitted positive RSV and respiratory failure. Per IDT today, patient is hallucinating and not appropriate to visit with at this time. Current weight 455 lb 8oz; height 5ft 10in; BMI 65.4 kg/m2. No weight history in chart, unable to assess. Current diet is Regular, however patient has not ordered a tray yet today. No intakes recorded since admit. Per nursing documentation, patient has a venous statsis ulcer located on anterior MIKO. No staging noted. With patient's current condition, not appropriate to visit. RDN will not order supplements at this time with patient's current status. Nursing staff can offer supplements to patient at any time. RDN will continue to monitor and reassess at later date when patient is stable and able to eat.
[2024-04-27 10:52] LABS: Hemoglobin A1C* 6.4 % (0-5.6)
[2024-04-27 12:38] LABS: HCO3 VBG 36 mmol/L (21-28); PO2 VBG 59.5 mmHG (25-47); pH VBG 7.265 (7.32-7.43)
[2024-04-27 12:42] LABS: PCO2 VBG 80 mmHG (40-50)
--- NOTE | 2024-04-27 13:40 | RESP.RT ---
spoke with provider. Plan is to attempt to qualify pt for BIPAP over the next couple of days. RT will work with provider on this.
--- NOTE | 2024-04-27 14:18 | PC.NURSE ---
sleeping with bipap on
--- NOTE | 2024-04-27 14:31 | REH.OT ---
OT: OT/PT received orders and held evals today due to medical status this am, rechecked in pm and patient not appropriate. Will recheck status tomorrow.
--- NOTE | 2024-04-27 15:14 | P.IMPN_ITS ---
Progress Note: A&P Assessment and plan (1) Acute on chronic respiratory failure with hypoxia and hypercapnia: Problem details: Appears to be a combination of acute RSV, COPD exacerbation and obstructive sleep apnea which has been untreated. Responding well to noninvasive support with BiPAP. Status: Acute (2) Respiratory syncytial virus (RSV): Problem details: - supportive cares, supplemental oxygen as needed, RT referral. Has RSV pneumonia evidence on chest CT. Due to respiratory failure will initially treat with antibiotics. Status: Acute (3) COPD exacerbation: Problem details: Nebs and steroids. Status: Acute (4) Diabetes mellitus: Problem details: Hemoglobin A1c 6.4. Recommend terzepitide Status: Acute Plan Patient is admitted to the hospital for respiratory failure. Now transferred to CCU for respiratory failure , obtain ended with hypercarbic and hypoxic respiratory failure due to RSV pneumonia, COPD exacerbation and underlying obstructive sleep apnea. Time Spent With Patient Total time spent: Total time spent today in critical care evaluation and treatment is 100 minutes Subjective Date Seen: 04/27/24 Interval history: 59-year-old male admitted to the hospital with difficulty breathing. Patient has a BMI of 65. Patient has a lifelong history of symptoms of sleep apnea according to his daughter. She has observe since her childhood that he has apneic spells is chronically having daytime sleepiness lots of snoring. He had a sleep study in July of 2022 which only showed mild sleep apnea but the test was incomplete and possibly not valid. He has recently become exposed to his grandson with RSV. He has developed respiratory illness symptoms from that including cough and chills. He developed hypoxia and presented to the emergency room. He is a smoker and with a diagnosis of COPD as well. 04/27/2024. Overnight patient was put on oxygen with a goal of an O2 sat of 80% due to concerns about CO2 retention. He was receiving 4 L per nasal cannula overnight. This morning I was contacted urgently by the nurse because he was hard to arouse, delirious and hypoxic. He is also observed to have sonorous breathing. Initial evaluation suggested this was obstructive sleep apnea. Blood gases obtained he was given BiPAP, DuoNeb, Solu-Medrol and repositioned in bed to be more upright to help with probable obstructive sleep apnea. He was difficult to arouse and appear delirious and was yelling out. Initial venous blood gas showed a pCO2 of 91. After about 40 minutes is improved to a pCO2 of 90. And after 3 more hours improved to a pCO2 of 80. PH also improved. Mental status also improved. Exam Narrative: Exam Narrative: Initial examination was the patient was on supplemental oxygen 4 L per nasal cannula, delirious and unresponsive. He was flailing with his left arm. Intermittently he would appear obtain ended and stop breathing. Other times he would have sonorous and tachycardic breathing. There is audible inspiratory and expiratory wheezes and crackles noted this was thought to be more upper airway noise than lower airway noise. Repeat examination after being put on BiPAP. O2 sat in the upper 80s. Breathing is less labored. He has some leak around his face mass but tolerating this well. He is sleeping but arouses and is oriented to his circumstances. Respirations with mildly prolonged expiratory phase still has some upper airway rhonchi as well as some expiratory wheezing. Marked diminished breath sounds in all lung cruz. Abdomen is soft without tenderness. Extremities with chronic venous stasis changes and 2+ edema. Const: Vital Signs, click to edit/add: Vital Signs - 24 hr 04/26/24 18:20 04/26/24 18:42 04/26/24 18:44 Temperature 98.2 F Pulse Rate 110 H Pulse Rate [Left] Pulse Rate [Pulse Oximeter] 108 H Respiratory Rate 20 Blood Pressure 136/83 Blood Pressure [Le ft Arm] Blood Pressure [Ri ght Arm] Blood Pressure [Ri ght Upper Arm] 157/84 H Pulse Oximetry 88 83 L Oxygen Delivery Me thod Room Air Nasal Cannula Oxygen Flow Rate 2 Fraction of Inspir ed Oxygen 04/26/24 18:45 04/26/24 19:00 04/26/24 19:05 Temperature Pulse Rate 104 H 105 H 107 H Pulse Rate [Left] Pulse Rate [Pulse Oximeter] Respiratory Rate Blood Pressure 116/49 L Blood Pressure [Le ft Arm] Blood Pressure [Ri ght Arm] Blood Pressure [Ri ght Upper Arm] Pulse Oximetry 88 88 88 Oxygen Delivery Me thod Nasal Cannula Nasal Cannula Nasal Cannula Oxygen Flow Rate 2 2 2 Fraction of Inspir ed Oxygen 04/26/24 19:15 04/26/24 19:30 04/26/24 19:32 Temperature Pulse Rate 106 H 109 H 106 H Pulse Rate [Left] Pulse Rate [Pulse Oximeter] Respiratory Rate Blood Pressure 112/87 Blood Pressure [Le ft Arm] Blood Pressure [Ri ght Arm] Blood Pressure [Ri ght Upper Arm] Pulse Oximetry 86 L 88 86 L Oxygen Delivery Me thod Nasal Cannula Nasal Cannula Nasal Cannula Oxygen Flow Rate 2 2 2 Fraction of Inspir ed Oxygen 04/26/24 19:45 04/26/24 20:00 04/26/24 20:01 Temperature Pulse Rate 109 H 107 H Pulse Rate [Left] Pulse Rate [Pulse Oximeter] Respiratory Rate Blood Pressure 101/72 Blood Pressure [Le ft Arm] Blood Pressure [Ri ght Arm] Blood Pressure [Ri ght Upper Arm] Pulse Oximetry 88 88 Oxygen Delivery Me thod Nasal Cannula Nasal Cannula Nasal Cannula Oxygen Flow Rate 2 2 2 Fraction of Inspir ed Oxygen 04/26/24 20:15 04/26/24 20:31 04/26/24 20:33 Temperature Pulse Rate 106 H 108 H 119 H Pulse Rate [Left] Pulse Rate [Pulse Oximeter] Respiratory Rate Blood Pressure 132/88 Blood Pressure [Le ft Arm] Blood Pressure [Ri ght Arm] Blood Pressure [Ri ght Upper Arm] Pulse Oximetry 90 88 90 Oxygen Delivery Me thod Nasal Cannula Nasal Cannula Nasal Cannula Oxygen Flow Rate 2 2 2 Fraction of Inspir ed Oxygen 04/26/24 20:34 04/26/24 20:45 04/26/24 21:03 Temperature 97.0 F L Pulse Rate 127 H 108 H Pulse Rate [Left] 109 H Pulse Rate [Pulse Oximeter] Respiratory Rate 22 Blood Pressure Blood Pressure [Le ft Arm] 138/88 Blood Pressure [Ri ght Arm] Blood Pressure [Ri ght Upper Arm] Pulse Oximetry 91 91 88 Oxygen Delivery Me thod Nasal Cannula Nasal Cannula Nasal Cannula Oxygen Flow Rate 3 3 3 Fraction of Inspir ed Oxygen 04/26/24 21:03 04/26/24 21:10 04/26/24 22:44 Temperature 97.0 F L Pulse Rate Pulse Rate [Left] 109 H Pulse Rate [Pulse Oximeter] Respiratory Rate 22 22 22 Blood Pressure Blood Pressure [Le ft Arm] 138/88 Blood Pressure [Ri ght Arm] Blood Pressure [Ri ght Upper Arm] Pulse Oximetry 88 88 88 Oxygen Delivery Me thod Nasal Cannula Nasal Cannula Nasal Cannula Oxygen Flow Rate 3 3 3 Fraction of Inspir ed Oxygen 04/26/24 22:59 04/26/24 23:00 04/27/24 03:00 Temperature 98.6 F Pulse Rate 101 H Pulse Rate [Left] 109 H 107 H Pulse Rate [Pulse Oximeter] Respiratory Rate 22 24 Blood Pressure Blood Pressure [Le ft Arm] 137/73 Blood Pressure [Ri ght Arm] Blood Pressure [Ri ght Upper Arm] Pulse Oximetry 88 Oxygen Delivery Me thod Nasal Cannula Oxygen Flow Rate 4 Fraction of Inspir ed Oxygen 04/27/24 07:00 04/27/24 07:00 04/27/24 09:00 Temperature 96.9 F L Pulse Rate 116 H Pulse Rate [Left] 114 H 107 H Pulse Rate [Pulse Oximeter] Respiratory Rate 25 H Blood Pressure Blood Pressure [Le ft Arm] 124/81 Blood Pressure [Ri ght Arm] 133/78 Blood Pressure [Ri ght Upper Arm] Pulse Oximetry 86 L 86 L Oxygen Delivery Me thod Nasal Cannula BiPAP Oxygen Flow Rate 4 Fraction of Inspir ed Oxygen 04/27/24 10:23 04/27/24 11:00 04/27/24 12:12 Temperature 96.9 F L Pulse Rate Pulse Rate [Left] 104 H 99 Pulse Rate [Pulse Oximeter] Respiratory Rate 27 H 22 Blood Pressure Blood Pressure [Le ft Arm] 132/76 160/98 H Blood Pressure [Ri ght Arm] Blood Pressure [Ri ght Upper Arm] Pulse Oximetry 88 86 L Oxygen Delivery Me thod BiPAP BiPAP Oxygen Flow Rate Fraction of Inspir ed Oxygen 30 04/27/24 13:00 04/27/24 14:06 04/27/24 14:23 Temperature Pulse Rate 100 Pulse Rate [Left] 105 H 104 H Pulse Rate [Pulse Oximeter] Respiratory Rate 22 22 Blood Pressure Blood Pressure [Le ft Arm] 132/79 168/90 H Blood Pressure [Ri ght Arm] Blood Pressure [Ri ght Upper Arm] Pulse Oximetry 90 88 Oxygen Delivery Me thod BiPAP BiPAP Oxygen Flow Rate Fraction of Inspir ed Oxygen 04/27/24 14:25 Temperature Pulse Rate Pulse Rate [Left] 100 Pulse Rate [Pulse Oximeter] Respiratory Rate 22 Blood Pressure Blood Pressure [Le ft Arm] Blood Pressure [Ri ght Arm] Blood Pressure [Ri ght Upper Arm] Pulse Oximetry Oxygen Delivery Me thod Oxygen Flow Rate Fraction of Inspir ed Oxygen Documenting provider has reviewed patient's vital signs: yes Labs Labs: Laboratory Results - last 24 hr 04/26/24 04/26/24 04/26/24 18:42 18:52 18:53 WBC RBC Hgb Hct MCV MCH MCHC RDW Coeff of Blanca Plt Count Neut % (Auto) Lymph % (Auto) Forrest % (Auto) Eos % (Auto) Baso % (Auto) Neut # (Auto) Lymph # (Auto) Forrest # (Auto) Eos # (Auto) Baso # (Auto) Abs Immat Gran (auto) Imm/Tot Granulo (auto) D-Dimer Quant (PE/DVT) 0.75 H VBG pH 7.353 VBG pCO2 60 H VBG pO2 61.0 H VBG HCO3 33 H Sodium 137 Potassium 3.6 Chloride 98 Carbon Dioxide 32 Anion Gap 7 BUN 11 Creatinine 0.6 Estimated Creat Clear 136.88 Estimated GFR 111 Glucose 143 H Hemoglobin A1c Calcium 8.9 Troponin I < 0.01 L TSH Free T4 SARS-CoV-2 (PCR) Negative SARS-CoV-2 Influenza Type A (PCR) Negative PCR FLU A Influenza Type B (PCR) Negative PCR FLU B RSV (PCR) POSITIVE PCR RSV A Lab Acknowledgement 04/27/24 04/27/24 04/27/24 07:35 08:15 08:27 WBC 8.14 RBC 5.75 Hgb 15.5 Hct 51.9 MCV 90 MCH 27 MCHC 30 L RDW Coeff of Blanca 15.2 Plt Count 212 Neut % (Auto) 76.3 H Lymph % (Auto) 12.7 L Forrest % (Auto) 9.2 Eos % (Auto) 0.1 Baso % (Auto) 0.6 Neut # (Auto) 6.20 Lymph # (Auto) 1.00 Forrest # (Auto) 0.70 Eos # (Auto) 0.01 Baso # (Auto) 0.05 Abs Immat Gran (auto) 0.09 Imm/Tot Granulo (auto) 1.1 D-Dimer Quant (PE/DVT) VBG pH 7.204 L* VBG pCO2 91 H* VBG pO2 36.6 VBG HCO3 36 H Sodium 140 Potassium 4.4 Chloride 98 Carbon Dioxide 35 H Anion Gap 7 BUN 11 Creatinine 0.6 Estimated Creat Clear 136.88 Estimated GFR 111 Glucose 139 H Hemoglobin A1c 6.4 H Calcium 8.6 Troponin I TSH 0.687 Free T4 0.79 SARS-CoV-2 (PCR) Influenza Type A (PCR) Influenza Type B (PCR) RSV (PCR) Lab Acknowledgement Test Added Test Added 04/27/24 04/27/24 09:19 12:34 WBC RBC Hgb Hct MCV MCH MCHC RDW Coeff of Blanca Plt Count Neut % (Auto) Lymph % (Auto) Forrest % (Auto) Eos % (Auto) Baso % (Auto) Neut # (Auto) Lymph # (Auto) Forrest # (Auto) Eos # (Auto) Baso # (Auto) Abs Immat Gran (auto) Imm/Tot Granulo (auto) D-Dimer Quant (PE/DVT) VBG pH 7.248 L* 7.265 L VBG pCO2 85 H* 80 H* VBG pO2 36.4 59.5 H VBG HCO3 37 H 36 H Sodium Potassium Chloride Carbon Dioxide Anion Gap BUN Creatinine Estimated Creat Clear Estimated GFR Glucose Hemoglobin A1c Calcium Troponin I TSH Free T4 SARS-CoV-2 (PCR) Influenza Type A (PCR) Influenza Type B (PCR) RSV (PCR) Lab Acknowledgement
--- NOTE | 2024-04-27 16:38 | PC.NURSE ---
Addendum entered by Jessica Washington RN 04/27/24 18:18: He did ambulate into the BR with cane and SBA. He does insist on being in the bathroom by himself. He ended up urinating all over the floor as he refuses to sit on the toilet and refused to have any help with going to the bathroom. Addendum entered by Jessica Washington RN 04/27/24 17:56: He is even more awake now and talking with both of his daughters and eating something. We have him on a nasal canula at 2L with Etco2 monitoring reading 53 and oxygen sat is 88%. Original Note: End of Shift Note: Took over care of this patient around 9-9:30 this am when he was noted to not be responding to verbal commands. Received a dose of solu medrol and a duo neb and then was placed on bipap. At about 10-10:30 was more awake and did not want to be told what to do. He was going to walk to the bathroom on his own. He was hooked up to a IV as he was receiving an antibiotic. He was assisted with his IV pole but he was able to get up ambulated to the sink in the room which then he needed to take a break. After about 10 minutes was able to ambulate the rest of the way to the bathroom. Voided in the toilet standing up but did miss the toilet some what also. He wanted to have breakfast at this time. Ordered breakfast and then ask if he would put the bipap mask back on until his breakfast arrived he agreed to do this. He did fall back asleep and then slept until around 1630 where noted that his heart rate dropped to 74. Went into the room to see if he would respond to my voice. Called his name a couple of times but no response. Both of his daughters return and one called out his name and he was trying to sit up and wanted the bipap mask off. Did take him off put him on the nasal canula 2L with CO2 monitoring. His daughters were explaining to him how sick he was and we explained to him if he was going to be awake we would keep the nasal canula on at 2L but if he was going to sleep we need to have him on the bipap. He was then requesting to go back on to the bipap. At the time of this writing he is currently sleeping in the recliner chair with the bipap on and his daughter at his side. Will continue to monitor. He was another lab draw at 1830.
[2024-04-27] MEDS: CHLORTHALIDONE 25 MG TABLET PO (17:48)
[2024-04-27] MEDS: lisinopriL 10 MG TABLET PO (17:48)
[2024-04-27 18:38] LABS: HCO3 VBG 38 mmol/L (21-28); PO2 VBG < 30.1 mmHG (25-47); pH VBG 7.301 (7.32-7.43)
[2024-04-27 18:40] LABS: PCO2 VBG 76 mmHG (40-50)
[2024-04-27] MEDS: NYSTATIN CREAM 30 GM 1 APPLIC TOPICAL (20:52)
[2024-04-27] MEDS: ENOXAPARIN 40 MG/0.4 ML INJ SUBCUT (20:52)
[2024-04-27] MEDS: TRIAMCINOLONE ACETONIDE CREAM 0.1 % 1 APPLIC TOPICAL (20:53)
[2024-04-28] VITALS (12 sets, daily range): BP systolic 100–166; BP diastolic 60–83; PULSE 83–107; RESP 22–28; TEMP 35.9–37.2; O2SAT 84–92
[2024-04-28] MEDS: IPRAT-ALBUT 0.5-2.5 MG/3 ML NEB 1 NEB IH ×4 (02:14→21:58)
--- NOTE | 2024-04-28 05:37 | PC.NURSE ---
[id number] Pt slept on and off during shift, bipap on entire time with exception to drink and go to br. unable to walk to br due to weakness and feeling shakey, stood at bedside and allowed nurse to assist with urinal. Pt will desat to upper 70's while sleeping, even with bipap on, nurse wakes patient up and sats increase to upper 80's immediately. lung sounds course and wheezy, scheduled nebs administered with no improvement. Pt coughing up thick yellow phlegm, especially after using aerobika.
[2024-04-28 06:57] LABS: HCO3 VBG 41 mmol/L (21-28); PO2 VBG < 30.1 mmHG (25-47); pH VBG 7.308 (7.32-7.43)
[2024-04-28 07:00] LABS: PCO2 VBG 82 mmHG (40-50)
[2024-04-28 07:17] LABS: Chloride* 94 mmol/L (96-114); Potassium* 4.4 mmol/L (3.6-5.1); Sodium* 137 mmol/L (135-149)
[2024-04-28 07:20] LABS: Anion Gap 3 mEq/L (7-15); Carbon Dioxide* 40 mmol/L (20-32); Creatinine* 0.6 mg/dL (0.5-1.5); Est. Creatinine Clearance* 136.88; Estimated Glomerular Filt Rate 111 ml/min
[2024-04-28 07:21] LABS: Blood Urea Nitrogen* 14 mg/dL (7-30); Calcium* 8.5 mg/dL (8.4-10.6); Glucose* 122 mg/dL (60-115); Magnesium* 2.1 mg/dL (1.5-2.6)
[2024-04-28] MEDS: AZITHROMYCIN 250 MG TABLET 500 MG PO (09:07)
[2024-04-28] MEDS: lisinopriL 10 MG TABLET PO (09:07)
[2024-04-28] MEDS: predniSONE 20 MG TABLET 60 MG PO (09:07)
[2024-04-28] MEDS: CHLORTHALIDONE 25 MG TABLET PO (09:07)
[2024-04-28] MEDS: SODIUM CHLORIDE 0.9 % (FLUSH) 10 ML SYRINGE 5 ML IVF ×2 (09:08→21:58)
[2024-04-28] MEDS: NYSTATIN CREAM 30 GM 1 APPLIC TOPICAL ×2 (09:08→22:18)
[2024-04-28] MEDS: cefTRIAXone 2 GM in 0.9 % SODIUM CHLORIDE Mini-bag 100 ML IVPB (09:08)
--- NOTE | 2024-04-28 14:44 | PM.IMPN1 ---
Progress Note: A&P Assessment and plan (1) Acute on chronic respiratory failure with hypoxia and hypercapnia: Problem details: Appears to be a combination of acute RSV, COPD exacerbation and obstructive sleep apnea which has been untreated. Responding well to noninvasive support with BiPAP. Likely will need CPAP or BiPAP indefinitely at the time of discharge Status: Acute (2) Respiratory syncytial virus (RSV): Problem details: - supportive cares, supplemental oxygen as needed, RT referral. Has RSV pneumonia evidence on chest CT. Due to respiratory failure will initially treat with antibiotics. As RSV pneumonia improves I expect his hypoxia will improve as well. Hopefully can wean off of supplemental oxygen. Status: Acute (3) COPD exacerbation: Problem details: Nebs and steroids. Status: Acute (4) Diabetes mellitus: Problem details: Hemoglobin A1c 6.4. Recommend terzepitide Status: Acute (5) Delirium: Problem details: Patient has had episodes of hyper and hypoactive delirium presumably secondary to his CO2 narcosis and hypoxia. Clinically improving Status: Acute Plan Continue in hospital for noninvasive respiratory support and close monitoring of hypoxia, hypercarbia, altered mental status. Time Spent With Patient Total time spent: Total time spent today is 40 minutes in coordination of care discussing with patient, daughter and other healthcare providers ongoing management of respiratory failure Subjective Date Seen: 04/28/24 Interval history: 59-year-old male admitted to the hospital with difficulty breathing. Patient has a BMI of 65. Patient has a lifelong history of symptoms of sleep apnea according to his daughter. She has observe since her childhood that he has apneic spells is chronically having daytime sleepiness lots of snoring. He had a sleep study in July of 2022 which only showed mild sleep apnea but the test was incomplete and possibly not valid. He has recently become exposed to his grandson with RSV. He has developed respiratory illness symptoms from that including cough and chills. He developed hypoxia and presented to the emergency room. He is a smoker and with a diagnosis of COPD as well. 04/27/2024. Overnight patient was put on oxygen with a goal of an O2 sat of 80% due to concerns about CO2 retention. He was receiving 4 L per nasal cannula overnight. This morning I was contacted urgently by the nurse because he was hard to arouse, delirious and hypoxic. He is also observed to have sonorous breathing. Initial evaluation suggested this was obstructive sleep apnea. Blood gases obtained he was given BiPAP, DuoNeb, Solu-Medrol and repositioned in bed to be more upright to help with probable obstructive sleep apnea. He was difficult to arouse and appear delirious and was yelling out. Initial venous blood gas showed a pCO2 of 91. After about 40 minutes is improved to a pCO2 of 90. And after 3 more hours improved to a pCO2 of 80. PH also improved. Mental status also improved. 04/28/2024: Patient slept on BiPAP overnight. He reports that he slept fairly well. When he is awake he goes off BiPAP on oxygen with capnography. CO2 levels have been primarily in the 60s with 1-2 L of oxygen per nasal cannula O2 sats have been in the 80s. Episodes of coughing up a lot of sputum. No fever. Exam Narrative: Exam Narrative: He is alert and oriented to his circumstances. Mentally much clearer than yesterday. Oropharynx with very small airway. Respirations with diminished breath sounds but minimal wheezing and occasional inspiratory and expiratory rhonchi heard no consolidation. Fair air exchange in lung cruz. Cardiovascular: S1, S2, regular rate and rhythm. Abdomen is soft without tenderness extremities with chronic venous stasis changes. Const: Vital Signs, click to edit/add: Vital Signs - 24 hr 04/27/24 15:21 04/27/24 16:00 04/27/24 20:00 Temperature 97.1 F L Pulse Rate Pulse Rate [Left] 103 H 86 102 H Respiratory Rate 22 22 21 Blood Pressure [Le ft Arm] 115/76 142/65 H 151/90 H Pulse Oximetry 88 89 91 Oxygen Delivery Me thod BiPAP BiPAP BiPAP Oxygen Flow Rate Fraction of Inspir ed Oxygen 35 04/27/24 22:00 04/27/24 23:00 04/27/24 23:00 Temperature 97.2 F L Pulse Rate 71 Pulse Rate [Left] 105 H Respiratory Rate 24 24 Blood Pressure [Le ft Arm] 107/71 Pulse Oximetry 90 Oxygen Delivery Me thod BiPAP Oxygen Flow Rate Fraction of Inspir ed Oxygen 35 04/28/24 00:00 04/28/24 02:00 04/28/24 04:00 Temperature 97.1 F L 97.9 F Pulse Rate Pulse Rate [Left] 83 105 H 98 Respiratory Rate 24 24 24 Blood Pressure [Le ft Arm] 110/72 134/75 112/74 Pulse Oximetry 84 L 86 L 86 L Oxygen Delivery Me thod BiPAP BiPAP BiPAP Oxygen Flow Rate Fraction of Inspir ed Oxygen 30 35 35 04/28/24 06:00 04/28/24 07:00 04/28/24 08:00 Temperature 97.4 F L Pulse Rate 92 Pulse Rate [Left] 96 102 H Respiratory Rate 24 27 H Blood Pressure [Le ft Arm] 110/78 138/83 Pulse Oximetry 92 Oxygen Delivery Me thod BiPAP BiPAP Oxygen Flow Rate Fraction of Inspir ed Oxygen 04/28/24 12:00 Temperature 97.8 F Pulse Rate Pulse Rate [Left] 97 Respiratory Rate 26 H Blood Pressure [Le ft Arm] 166/65 H Pulse Oximetry 92 Oxygen Delivery Me thod Nasal Cannula BiPA P Oxygen Flow Rate 2 Fraction of Inspir ed Oxygen Documenting provider has reviewed patient's vital signs: yes Labs Labs: Laboratory Results - last 24 hr 04/27/24 04/28/24 18:35 06:28 VBG pH 7.301 L 7.308 L VBG pCO2 76 H* 82 H* VBG pO2 < 30.1 < 30.1 VBG HCO3 38 H 41 H Sodium 137 Potassium 4.4 Chloride 94 L Carbon Dioxide 40 H Anion Gap 3 L BUN 14 Creatinine 0.6 Estimated Creat Clear 136.88 Estimated GFR 111 Glucose 122 H Calcium 8.5 Magnesium 2.1
--- NOTE | 2024-04-28 15:10 | REH.OT ---
OT: Multiple attempts to see patient, with other providers,too fatigued after PT, using Bipap, needing to return to see. Will reschedule eval.
[2024-04-28 16:35] LABS: Base Excess ABG 10.2 mmol/L (-3.0-3.0); HCO3 ABG 40 mmol/L (21-28); Oxygen Saturation ABG 65 % (92-100); TCO2 ABG 36 mmol/l (21-30); pH ABG 7.32 (7.35-7.45)
[2024-04-28 16:41] LABS: ABG PCO2 77 mmHG (35-45)
--- NOTE | 2024-04-28 17:18 | RESP.RT ---
Patient is very hypercarbic and needs to be qualified for a Home BiPAP. He has had an initial ABG pH 7.32 pCO2 77.4 on 2L NC for a baseline ABG sample. To qualify for BiPAP he needed a pCO2 of more than 52. We will do an ABG with him on CPAP to rule out that his condition can be treated with CPAP, and then follow that with an ABG after BiPAP to show that he improves on BiPAP vs. CPAP. This will require nocturanal oxymetry during the BiPAP and CPAP trials. We will work on these qualifications over the next few days when he is closer to discharge.
[2024-04-28] MEDS: ENOXAPARIN 40 MG/0.4 ML INJ SUBCUT (21:59)
[2024-04-28 22:02] LABS: HCO3 VBG 41 mmol/L (21-28); PO2 VBG 45.4 mmHG (25-47); pH VBG 7.353 (7.32-7.43)
[2024-04-28 22:05] LABS: PCO2 VBG 74 mmHG (40-50)
--- NOTE | 2024-04-28 22:57 | PC.NURSE ---
Patient not arousable with sternal rub and calling name around 2129. Patient was up using urinal around 1999. Wearing BiPap. MD notified and assessed patient. Per verbal order from MD do not use NC on patient, keep BiPAP on and keep O2 sats 80-87%. Patient awoke at 2245 and A&O and upset about having to wear the BiPAP.
[2024-04-28 23:35] LABS: HCO3 VBG 40 mmol/L (21-28); PO2 VBG 32.7 mmHG (25-47); pH VBG 7.388 (7.32-7.43)
[2024-04-28 23:36] LABS: PCO2 VBG 66 mmHG (40-50)
--- NOTE | 2024-04-28 23:40 | PC.NURSE ---
Pt Awake and alert since 2299. came to talk with PT. PCO2 66 at this time. Ok to leave Bi Pap off while awake. Keep Pt sats between 80-87 if possible.
--- NOTE | 2024-04-28 23:45 | PC.NURSE ---
At 2345 Pt asked to put Bi Pap back on. O2 set at 21%.
[2024-04-29] VITALS (8 sets, daily range): BP systolic 106–133; BP diastolic 62–99; PULSE 84–96; RESP 16–24; TEMP 36.2–36.9; O2SAT 86–93
--- NOTE | 2024-04-29 04:44 | PC.NURSE ---
Pt was alert and oriented from 2300 on. Pt able to get self up and walk from chair to bed. Used bi pap only when sleeping. Bi pap set w/ 21% o2. While off pt remained on RA and maintained sats @ 87.
[2024-04-29 07:09] LABS: HCO3 VBG 41 mmol/L (21-28); PO2 VBG 44.5 mmHG (25-47); pH VBG 7.432 (7.32-7.43)
--- NOTE | 2024-04-29 07:14 | RESP.RT ---
Responded to Bipap alarming. Patient removed Bipap mask and is awake for the day. Spo2 84-87% on room air. Continue Bipap as needed.
[2024-04-29 07:17] LABS: PCO2 VBG 61 mmHG (40-50)
[2024-04-29 07:48] LABS: Chloride* 93 mmol/L (96-114); Sodium* 135 mmol/L (135-149)
[2024-04-29 07:49] LABS: Potassium* 3.7 mmol/L (3.6-5.1)
[2024-04-29 07:51] LABS: Creatinine* 0.5 mg/dL (0.5-1.5); Est. Creatinine Clearance* 164.25; Estimated Glomerular Filt Rate 117 ml/min
[2024-04-29 07:52] LABS: Blood Urea Nitrogen* 16 mg/dL (7-30); Calcium* 8.9 mg/dL (8.4-10.6); Glucose* 105 mg/dL (60-115)
[2024-04-29] MEDS: lisinopriL 10 MG TABLET PO (07:57)
[2024-04-29] MEDS: CHLORTHALIDONE 25 MG TABLET PO (07:57)
[2024-04-29] MEDS: IPRAT-ALBUT 0.5-2.5 MG/3 ML NEB 1 NEB IH ×2 (07:57→20:47)
[2024-04-29] MEDS: predniSONE 20 MG TABLET 60 MG PO (07:57)
[2024-04-29] MEDS: cefTRIAXone 2 GM in 0.9 % SODIUM CHLORIDE Mini-bag 100 ML IVPB (07:58)
[2024-04-29] MEDS: AZITHROMYCIN 250 MG TABLET 500 MG PO (07:58)
[2024-04-29] MEDS: ACETAMINOPHEN 325 MG TABLET 975 MG PO (07:58)
[2024-04-29 07:59] LABS: Anion Gap 5 mEq/L (7-15); Carbon Dioxide* 37 mmol/L (20-32)
[2024-04-29] MEDS: SODIUM CHLORIDE 0.9 % (FLUSH) 10 ML SYRINGE 5 ML IVF ×2 (08:00→20:49)
[2024-04-29] MEDS: NYSTATIN CREAM 30 GM 1 APPLIC TOPICAL ×2 (08:01→20:49)
--- NOTE | 2024-04-29 09:38 | PM.IMPN1 ---
Progress Note: A&P Assessment and plan (1) Acute on chronic respiratory failure with hypoxia and hypercapnia: Problem details: Appears to be a combination of acute RSV, COPD exacerbation and obstructive sleep apnea which has been untreated. Responding well to noninvasive support with BiPAP. Likely will need CPAP or BiPAP indefinitely at the time of discharge Status: Acute (2) Respiratory syncytial virus (RSV): Problem details: RSV pneumonia. Clinically improving. Status: Acute (3) COPD exacerbation: Problem details: Nebs and steroids. Improving Status: Acute (4) Diabetes mellitus: Problem details: Hemoglobin A1c 6.4. Recommend terzepitide Status: Acute (5) Delirium: Problem details: Patient has had episodes of hyper and hypoactive delirium presumably secondary to his CO2 narcosis and hypoxia. Clinically improving Status: Acute (6) Tobacco use: Problem details: - recommend cessation, prn nicotine patch Status: Acute (7) Morbid obesity with BMI of 60.0-69.9, adult: Problem details: On Awake Counselor has prescribed semaglutide. Apparently insurance has not covered this. Patient is a candidate for terzepitide which has indications for diabetes, sleep apnea, obesity. Status: Acute Plan 59-year-old male with hypoxic and hypercarbic respiratory failure due to COPD, RSV pneumonia, severe sleep apnea. Clinically improving. Continue in-hospital for additional management and monitoring. Total time spent today is 40 minutes in coordination of care and discussing with patient and other providers management of respiratory failure Subjective Date Seen: 04/29/24 Interval history: 59-year-old male admitted to the hospital with difficulty breathing. Patient has a BMI of 65. Patient has a lifelong history of symptoms of sleep apnea according to his daughter. She has observe since her childhood that he has apneic spells is chronically having daytime sleepiness lots of snoring. He had a sleep study in July of 2022 which only showed mild sleep apnea but the test was incomplete and possibly not valid. He has recently become exposed to his grandson with RSV. He has developed respiratory illness symptoms from that including cough and chills. He developed hypoxia and presented to the emergency room. He is a smoker and with a diagnosis of COPD as well. 04/27/2024. Overnight patient was put on oxygen with a goal of an O2 sat of 80% due to concerns about CO2 retention. He was receiving 4 L per nasal cannula overnight. This morning I was contacted urgently by the nurse because he was hard to arouse, delirious and hypoxic. He is also observed to have sonorous breathing. Initial evaluation suggested this was obstructive sleep apnea. Blood gases obtained he was given BiPAP, DuoNeb, Solu-Medrol and repositioned in bed to be more upright to help with probable obstructive sleep apnea. He was difficult to arouse and appear delirious and was yelling out. Initial venous blood gas showed a pCO2 of 91. After about 40 minutes is improved to a pCO2 of 90. And after 3 more hours improved to a pCO2 of 80. PH also improved. Mental status also improved. 04/28/2024: Patient slept on BiPAP overnight. He reports that he slept fairly well. When he is awake he goes off BiPAP on oxygen with capnography. CO2 levels have been primarily in the 60s with 1-2 L of oxygen per nasal cannula O2 sats have been in the 80s. Episodes of coughing up a lot of sputum. No fever. Exam Narrative: Exam Narrative: Patient is alert and oriented. Appears comfortable breathing room air. Coarse cough noted. O2 sats in the mid to upper 80s on room air. Respirations with expiratory wheezing and prolonged expiratory phase. Also relatively diffuse rhonchi. Air exchange improved. Cardiovascular: S1, S2, regular rate and rhythm. Abdomen is soft without tenderness or mass. Const: Vital Signs, click to edit/add: Vital Signs - 24 hr 04/28/24 12:00 04/28/24 15:00 04/28/24 15:00 Temperature 97.8 F Pulse Rate 100 Pulse Rate [Left] 97 97 Respiratory Rate 26 H 28 H Blood Pressure [Le ft Arm] 166/65 H Pulse Oximetry 92 Oxygen Delivery Me thod Nasal Cannula BiPA P Oxygen Flow Rate 2 Fraction of Inspir ed Oxygen 04/28/24 15:00 04/28/24 17:14 04/28/24 17:14 Temperature 97.1 F L Pulse Rate Pulse Rate [Left] 97 Respiratory Rate 24 Blood Pressure [Le ft Arm] 113/60 Pulse Oximetry 92 Oxygen Delivery Me thod Nasal Cannula Nasal Cannula Oxygen Flow Rate 2 Fraction of Inspir ed Oxygen 35 0.28 04/28/24 20:22 04/28/24 22:21 04/28/24 23:25 Temperature 98.9 F 96.7 F L Pulse Rate Pulse Rate [Left] 107 H 92 92 Respiratory Rate 26 H 22 22 Blood Pressure [Le ft Arm] 100/62 122/66 Pulse Oximetry 88 90 Oxygen Delivery Me thod Nasal Cannula BiPAP Oxygen Flow Rate 2.0 Fraction of Inspir ed Oxygen 04/28/24 23:39 04/29/24 01:38 04/29/24 07:00 Temperature 97.5 F L Pulse Rate 101 H 91 Pulse Rate [Left] 96 Respiratory Rate 20 Blood Pressure [Le ft Arm] 106/67 Pulse Oximetry 86 L Oxygen Delivery Me thod Room Air BiPAP Oxygen Flow Rate Fraction of Inspir ed Oxygen 04/29/24 08:00 04/29/24 09:22 Temperature 97.7 F Pulse Rate Pulse Rate [Left] 92 Respiratory Rate 24 Blood Pressure [Le ft Arm] 126/78 Pulse Oximetry 87 L Oxygen Delivery Me thod Room Air BiPAP Oxygen Flow Rate Fraction of Inspir ed Oxygen 21 Documenting provider has reviewed patient's vital signs: yes Labs Labs: Laboratory Results - last 24 hr 04/28/24 04/28/24 04/28/24 16:31 21:56 23:30 ABG pH 7.32 L ABG pCO2 77 H* ABG pO2 34.0 L* ABG HCO3 40 H ABG Total CO2 36 H ABG O2 Saturation 65 L ABG Base Excess 10.2 H VBG pH 7.353 7.388 VBG pCO2 74 H* 66 H* VBG pO2 45.4 32.7 VBG HCO3 41 H 40 H Sodium Potassium Chloride Carbon Dioxide Anion Gap BUN Creatinine Estimated Creat Clear Estimated GFR Glucose Calcium 04/29/24 06:41 ABG pH ABG pCO2 ABG pO2 ABG HCO3 ABG Total CO2 ABG O2 Saturation ABG Base Excess VBG pH 7.432 H VBG pCO2 61 H* VBG pO2 44.5 VBG HCO3 41 H Sodium 135 Potassium 3.7 Chloride 93 L Carbon Dioxide 37 H Anion Gap 5 L BUN 16 Creatinine 0.5 Estimated Creat Clear 164.25 Estimated GFR 117 Glucose 105 Calcium 8.9
[2024-04-29] MEDS: SENNOSIDES 1 TAB TABLET PO (11:15)
--- NOTE | 2024-04-29 13:22 | RESP.RT ---
Bipap check on hold due to patient being off the Bipap, tolerating well, visiting with family for the holiday. Will continue to monitor.
--- NOTE | 2024-04-29 18:54 | PC.NURSE ---
15-19: The patient is plesant and cooperative with cares. O2 maintained greater than 85% this shift. Up SBA w/ walker to BR for voiding. Pannus/davion area and bottom was cleansed. The patient was noted to have a small open wound on the back of his R leg... it was cleansed with vashe, dried and a mepilex was placed. The patient reports no pain. BIPAP to be on when the patient is sleeping. Lyphedema wraps to BLE... 2+ edema.... they were not changed, although the patients daughter did bring a new pair. Calls appropriately. Amaya HEART BSN
[2024-04-29] MEDS: ENOXAPARIN 40 MG/0.4 ML INJ SUBCUT (20:49)
[2024-04-29] MEDS: TRIAMCINOLONE ACETONIDE CREAM 0.1 % 1 APPLIC TOPICAL (20:49)
[2024-04-29] MEDS: NICOTINE 7 MG PATCH 1 PATCH TRANSDERMA (21:54)
[2024-04-30 02:08] VITALS: BP 123/82; PULSE 92; RESP 22; TEMP 36.6; O2SAT 90
[2024-04-30] MEDS: IPRAT-ALBUT 0.5-2.5 MG/3 ML NEB 1 NEB IH ×4 (02:49→21:43)
--- NOTE | 2024-04-30 05:54 | PC.NURSE ---
Shift note: Patient's condition has improved compared to yesterday. Alert and oriented. He removed the BIPAP at 0200 but the O2 has been between 84 and 90. Ambulated with SBA with walker to BR. Dressing to right leg changed, Tubigrip and lymphedema wrap applied to both legs. HR quickly jumps above 100 with activity. Pt stayed in the recliner for the night and appeared comfortable in the recliner. No SOB recorded.
[2024-04-30 06:43] LABS: HCO3 VBG 36 mmol/L (21-28); PCO2 VBG 52 mmHG (40-50); PO2 VBG 47.9 mmHG (25-47); pH VBG 7.453 (7.32-7.43)
[2024-04-30 07:00] VITALS: BP 164/86; PULSE 103; PULSE 97; RESP 24; TEMP 36.3; O2SAT 89
[2024-04-30 07:20] LABS: Chloride* 94 mmol/L (96-114); Sodium* 134 mmol/L (135-149)
[2024-04-30 07:23] LABS: Anion Gap 4 mEq/L (7-15); Carbon Dioxide* 36 mmol/L (20-32); Creatinine* 0.6 mg/dL (0.5-1.5); Est. Creatinine Clearance* 136.88; Estimated Glomerular Filt Rate 111 ml/min; Potassium* 3.4 mmol/L (3.6-5.1)
[2024-04-30 07:24] LABS: Blood Urea Nitrogen* 17 mg/dL (7-30); Calcium* 9.2 mg/dL (8.4-10.6); Glucose* 106 mg/dL (60-115)
[2024-04-30] MEDS: predniSONE 20 MG TABLET 40 MG PO (07:47)
[2024-04-30] MEDS: NYSTATIN CREAM 30 GM 1 APPLIC TOPICAL ×3 (07:48→21:49)
[2024-04-30] MEDS: SODIUM CHLORIDE 0.9 % (FLUSH) 10 ML SYRINGE 5 ML IVF ×2 (07:48→21:44)
[2024-04-30] MEDS: CHLORTHALIDONE 25 MG TABLET PO (07:48)
[2024-04-30] MEDS: POTASSIUM BICARB 25 MEQ EFFERVESCENT TAB PO (07:48)
[2024-04-30] MEDS: lisinopriL 10 MG TABLET PO (07:48)
[2024-04-30] MEDS: ACETAMINOPHEN 325 MG TABLET 975 MG PO (11:04)
--- NOTE | 2024-04-30 11:39 | P.IMPN_ITS ---
Progress Note: A&P Assessment and plan (1) Acute on chronic respiratory failure with hypoxia and hypercapnia: Problem details: Appears to be a combination of acute RSV, COPD exacerbation and obstructive sleep apnea which has been untreated. Responding well to noninvasive support with BiPAP. Likely will need CPAP or BiPAP indefinitely at the time of discharge. Status: Acute (2) Respiratory syncytial virus (RSV): Problem details: RSV pneumonia. Clinically improving. Status: Acute (3) COPD exacerbation: Problem details: Nebs and steroids. Improving Status: Acute (4) Diabetes mellitus: Problem details: Hemoglobin A1c 6.4. Recommend terzepitide. Status: Acute (5) Delirium: Problem details: Patient has had episodes of hyper and hypoactive delirium presumably secondary to his CO2 narcosis and hypoxia. Resolved Status: Acute (6) Tobacco use: Problem details: - recommend cessation, prn nicotine patch Status: Acute (7) Morbid obesity with BMI of 60.0-69.9, adult: Problem details: Nutrient Management Specialist has prescribed semaglutide. Apparently insurance has not covered this. Patient is a candidate for terzepitide which has indications for diabetes, sleep apnea, obesity. Status: Acute (8) Venous stasis dermatitis: Problem details: Needs ongoing outpatient care with compression and wound care. Consider Wound Care Clinic verses care by family at home Status: Acute Plan Continue in hospital for ongoing evaluation monitoring of his respiratory failure. Respiratory therapy is doing further testing to determine what form of her respiratory/ pressure support he will need. Probably discharge to home tomorrow if safe discharge plan is developed. Total time spent today is 35 minutes in discussion with patient, respiratory therapy, nursing plan of care and disposition Subjective Date Seen: 04/30/24 Interval history: 59-year-old male admitted to the hospital with difficulty breathing. Patient has a BMI of 65. Patient has a lifelong history of symptoms of sleep apnea according to his daughter. She has observe since her childhood that he has apneic spells is chronically having daytime sleepiness lots of snoring. He had a sleep study in July of 2022 which only showed mild sleep apnea but the test was incomplete and possibly not valid. He has recently become exposed to his grandson with RSV. He has developed respiratory illness symptoms from that including cough and chills. He developed hypoxia and presented to the emergency room. He is a smoker and with a diagnosis of COPD as well. 04/27/2024. Overnight patient was put on oxygen with a goal of an O2 sat of 80% due to concerns about CO2 retention. He was receiving 4 L per nasal cannula overnight. This morning I was contacted urgently by the nurse because he was hard to arouse, delirious and hypoxic. He is also observed to have sonorous breathing. Initial evaluation suggested this was obstructive sleep apnea. Blood gases obtained he was given BiPAP, DuoNeb, Solu-Medrol and repositioned in bed to be more upright to help with probable obstructive sleep apnea. He was difficult to arouse and appear delirious and was yelling out. Initial venous blood gas showed a pCO2 of 91. After about 40 minutes is improved to a pCO2 of 90. And after 3 more hours improved to a pCO2 of 80. PH also improved. Mental status also improved. 04/28/2024: Patient slept on BiPAP overnight. He reports that he slept fairly well. When he is awake he goes off BiPAP on oxygen with capnography. CO2 levels have been primarily in the 60s with 1-2 L of oxygen per nasal cannula O2 sats have been in the 80s. Episodes of coughing up a lot of sputum. No fever. 04/29/2024: Feeling better. Cough is better, breathing is better. No new concern 04/30/2024: Reports feeling much better today. He is now on room air sitting up in the chair. Was able to walk with on stairs with therapy today in that went well. Exam Narrative: Exam Narrative: He is alert appears in no distress. Sitting up in the chair breathing room air with O2 sats around 90% respirations with much improved air exchange. Mildly prolonged expiratory phase no wheezing. Cardiovascular: S1, S2, regular rate and rhythm. Abdomen is soft without tenderness. Const: Vital Signs, click to edit/add: Vital Signs - 24 hr 04/29/24 13:20 04/29/24 15:00 04/29/24 15:51 Temperature 98.0 F Pulse Rate 95 Pulse Rate [Left] 84 Respiratory Rate 22 Blood Pressure [Le ft Arm] 133/99 H Pulse Oximetry Oxygen Delivery Me thod Oxygen Flow Rate Fraction of Inspir ed Oxygen 21 04/29/24 19:00 04/29/24 23:00 04/29/24 23:00 Temperature 98.5 F 97.9 F Pulse Rate Pulse Rate [Left] 84 95 95 Respiratory Rate 22 22 22 Blood Pressure [Le ft Arm] 126/78 128/82 Pulse Oximetry 93 89 Oxygen Delivery Me thod Room Air BiPAP Oxygen Flow Rate 0 Fraction of Inspir ed Oxygen 04/29/24 23:00 04/30/24 02:08 04/30/24 07:00 Temperature 97.9 F Pulse Rate 92 97 Pulse Rate [Left] 92 Respiratory Rate 22 Blood Pressure [Le ft Arm] 123/82 Pulse Oximetry 90 Oxygen Delivery Me thod Room Air Oxygen Flow Rate Fraction of Inspir ed Oxygen 04/30/24 07:00 04/30/24 07:00 Temperature 97.3 F L Pulse Rate Pulse Rate [Left] 103 H 103 H Respiratory Rate 24 24 Blood Pressure [Le ft Arm] 164/86 H Pulse Oximetry 89 Oxygen Delivery Me thod Room Air Oxygen Flow Rate 0 Fraction of Inspir ed Oxygen Documenting provider has reviewed patient's vital signs: yes Labs Labs: Laboratory Results - last 24 hr 04/30/24 06:35 VBG pH 7.453 H VBG pCO2 52 H VBG pO2 47.9 H VBG HCO3 36 H Sodium 134 L Potassium 3.4 L Chloride 94 L Carbon Dioxide 36 H Anion Gap 4 L BUN 17 Creatinine 0.6 Estimated Creat Clear 136.88 Estimated GFR 111 Glucose 106 Calcium 9.2
[2024-04-30 12:00] VITALS: BP 144/87; PULSE 93; RESP 24; TEMP 36.6; O2SAT 89
[2024-04-30 13:10] LABS: ABG PCO2 55 mmHG (35-45); Base Excess ABG 9.2 mmol/L (-3.0-3.0); HCO3 ABG 36 mmol/L (21-28); Oxygen Saturation ABG 85 % (92-100); PO2 ABG 50.8 mmHG (80-105); TCO2 ABG 31 mmol/l (21-30); pH ABG 7.42 (7.35-7.45)
[2024-04-30] MEDS: NICOTINE 7 MG PATCH 1 PATCH TRANSDERMA (14:52)
[2024-04-30 15:00] VITALS: BP 130/107; PULSE 94; RESP 24; TEMP 36.6; O2SAT 90
[2024-04-30 19:00] VITALS: BP 117/69; PULSE 92; RESP 24; TEMP 36.6; O2SAT 91
--- NOTE | 2024-04-30 19:33 | PC.NURSE ---
PATIENT COMPLETED CPAP TRIAL WITH RESPIRATORY THERAPY TODAY. UP WITH SBA AND WALKER TO BATHROOM AND RECLINER. SOB WITH EXERTION. O2 SATS 84-88%RA WHEN AWAKE. PATIENT ALERT AND ORIENTED. INTERMITTENT PRODUCTIVE COUGH AND ENCOURAGED AEROBIKA USE.
[2024-04-30] MEDS: ENOXAPARIN 40 MG/0.4 ML INJ SUBCUT (21:43)
[2024-04-30] MEDS: TRIAMCINOLONE ACETONIDE CREAM 0.1 % 1 APPLIC TOPICAL (21:49)
[2024-04-30 23:00] VITALS: BP 125/79; PULSE 73; PULSE 83; RESP 20; TEMP 36.1; O2SAT 90
[2024-05-01] MEDS: IPRAT-ALBUT 0.5-2.5 MG/3 ML NEB 1 NEB IH ×3 (02:23→14:53)
[2024-05-01 02:27] VITALS: BP 122/82; PULSE 91; RESP 18; TEMP 36.2; O2SAT 86
--- NOTE | 2024-05-01 03:19 | PC.NURSE ---
[id number]: Pt alert, oriented and vitally stable. Pt reports no pain. Pt on Bipap, tolerates well though does take if off at times for a break, O2 sats above 86. Pt connected to both O2 monitors throughput shift. Wound on front right lower leg, dressing changed, now CDI. Pt has +2 pitting edema on pannus. Pt SBA and up in chair now.
[2024-05-01 05:13] VITALS: BP 116/65; PULSE 93; RESP 20; TEMP 36.4; O2SAT 91
--- NOTE | 2024-05-01 06:07 | PC.NURSE ---
End of shift note 0200-700: Pt alert & oriented x 4. He is transferring with rolling walker and SBA. VSS and pt has been afebrile. O2 sat of 86-93% noted on RA. Dressing to posterior R thigh changed after cleansing wound with Vashe and patting dry. This was done as old dressing was noted be rolled up and coming off. Pt only complaint of wearing Bipap from [id number] despite encouragement and education provided. Pt continent of bowel and bladder. Tele in place with NSR noted. Pt awake for most of the shift from [id number] and is up in recliner at this time. Call light within reach.
[2024-05-01 06:54] LABS: Chloride* 95 mmol/L (96-114); Potassium* 3.5 mmol/L (3.6-5.1); Sodium* 135 mmol/L (135-149)
[2024-05-01 06:57] LABS: Anion Gap 6 mEq/L (7-15); Blood Urea Nitrogen* 17 mg/dL (7-30); Carbon Dioxide* 34 mmol/L (20-32); Creatinine* 0.6 mg/dL (0.5-1.5); Est. Creatinine Clearance* 136.88; Estimated Glomerular Filt Rate 111 ml/min; Glucose* 106 mg/dL (60-115)
[2024-05-01 06:58] LABS: Calcium* 9.4 mg/dL (8.4-10.6)
[2024-05-01 07:00] VITALS: BP 131/94; PULSE 82; RESP 18; TEMP 36.4; O2SAT 87
[2024-05-01 07:34] VITALS: PULSE 85
[2024-05-01 08:15] LABS: ABG PCO2 53 mmHG (35-45); HCO3 ABG 35 mmol/L (21-28); PO2 ABG 52.5 mmHG (80-105); TCO2 ABG 31 mmol/l (21-30); pH ABG 7.34 (7.35-7.45)
[2024-05-01 08:16] LABS: Oxygen Saturation ABG 87 % (92-100)
--- NOTE | 2024-05-01 09:13 | PM.EN ---
Chart Event Note Date Seen: 05/01/24 Chart Event Note: 59-year-old male with COPD and hypoxic and hypercarbic respiratory failure. Initial arterial blood gas on 2 L per nasal cannula showed a pCO2 of 77. Given a trial of CPAP which he failed. Patient now needs BiPAP for respiratory support.
[2024-05-01] MEDS: lisinopriL 10 MG TABLET PO (09:34)
[2024-05-01] MEDS: CHLORTHALIDONE 25 MG TABLET PO (09:34)
[2024-05-01] MEDS: predniSONE 20 MG TABLET 40 MG PO (09:34)
[2024-05-01] MEDS: SODIUM CHLORIDE 0.9 % (FLUSH) 10 ML SYRINGE 5 ML IVF (09:35)
[2024-05-01 11:00] VITALS: BP 110/60; PULSE 96; RESP 22; TEMP 36.6; O2SAT 87
--- NOTE | 2024-05-01 15:08 | PM.DS1 ---
DS: Providers Provider Date Seen: 05/01/24 Date of admission: 04/26/24 22:19 Primary care physician: Joseph Guo MD Admitting Clinician: Hanna Tejeda MD Attending Physician on discharge: Dao Kemp MD Date of Discharge: 05/01/24 DS: Diagnosis Discharge Diagnosis (1) Acute on chronic respiratory failure with hypoxia and hypercapnia: Status: Acute Problem details: Appears to be a combination of acute RSV, COPD exacerbation and obstructive sleep apnea which has been untreated. Responding well to noninvasive support with BiPAP. On BiPAP at the time of discharge. Supplemental oxygen is relatively contraindicated due to CO2 retention (2) Respiratory syncytial virus (RSV): Status: Acute Problem details: RSV pneumonia. Clinically improving. (3) COPD exacerbation: Status: Acute Problem details: Nebs and steroids. Improving. Start INHALER: LAMA/LABA. (4) Diabetes mellitus: Status: Acute Problem details: Hemoglobin A1c 6.4. Recommend tirzepitide. (5) Delirium: Status: Acute Problem details: Patient has had episodes of hyper and hypoactive delirium presumably secondary to his CO2 narcosis and hypoxia. Resolved (6) Tobacco use: Status: Acute Problem details: - recommend cessation, prn nicotine patch (7) Morbid obesity with BMI of 60.0-69.9, adult: Status: Acute Problem details: Client Experience Specialist has prescribed semaglutide. Apparently insurance has not covered this. Patient is a candidate for tirzepitide which has indications for diabetes, sleep apnea, obesity. (8) Venous stasis dermatitis: Status: Acute Problem details: Needs ongoing outpatient care with compression and wound care. Consider Wound Care Clinic verses care by family at home (9) FAYE (obstructive sleep apnea): Status: Acute Problem details: Testing may have been inadequate in July of 2022. Clinically appears to have severe sleep apnea. Ongoing monitoring. Likely needs outpatient CPAP. DS: Summary Hospital Course Hospital Course: 59-year-old male admitted to the hospital with difficulty breathing. Longstanding history of smoking with COPD. COPD treatment has been p.r.n. albuterol. Patient has a BMI of 65 and suspected sleep apnea. He had a sleep study in July of 2022 which only showed mild sleep apnea but the test was incomplete and possibly not valid. He has recently become exposed to his grandson with RSV. He has developed respiratory illness symptoms from that including cough and chills. He developed hypoxia and presented to the emergency room. He is a smoker and with a diagnosis of COPD as well. During his hospital stay he was treated for COPD exacerbation with inhaled bronchodilators and systemic steroids. He received antibiotics initially because of concern about sepsis and radiographic imaging of pneumonia. This was ultimately felt to be pneumonia from RSV. He was treated with BiPAP for his hypercarbic and hypoxic respiratory failure. He had steady improvement over the subsequent few days in a hospital. He was able to wean off oxygen supplementation. Testing showed that he still had CO2 retention and hypoxia when breathing room air while he was awake. He underwent CPAP trial to see if that would work any remained hypoxic and hypercarbic despite use of CPAP. He was treated with BiPAP with improvement in his arterial blood gas. He will be discharged on BiPAP. For patient's morbid obesity, diabetes and sleep apnea I have recommended starting tirzepitide. Apparently this is been declined by his insurance in the past. He currently has a new diagnosis of diabetes with a hemoglobin A1c of 6.4 along with his morbid obesity. At discharge he will also be started on Anoro Ellipta inhaler. Status at Discharge Functional status at discharge: uses cane/walker Overall status at discharge: patient is progressing back to baseline Time Spent with Patient Time attestation: Total time spent providing and/or coordinating discharge services: 50 minutes Exam Narrative: Exam Narrative: He is alert and oriented to his circumstances. Respirations with diminished breath sounds, mild prolonged expiratory phase. Mild increased work of breathing. No consolidation, wheezing or crackles. Cardiovascular: Distant S1-S2 regular rate and rhythm. Abdomen is soft without tenderness. Lower extremities with moderate edema. Const: Vital Signs, click to edit/add: Vital Signs - 24 hr 04/30/24 19:00 04/30/24 23:00 04/30/24 23:00 Temperature 97.9 F 97.0 F L Pulse Rate 73 Pulse Rate [Left] 92 83 Respiratory Rate 24 20 Blood Pressure [Le ft Arm] 117/69 125/79 Pulse Oximetry 91 90 Oxygen Delivery Me thod BiPAP BiPAP Fraction of Inspir ed Oxygen 04/30/24 23:00 05/01/24 02:27 05/01/24 05:13 Temperature 97.1 F L 97.6 F Pulse Rate Pulse Rate [Left] 83 91 93 Respiratory Rate 20 18 20 Blood Pressure [Le ft Arm] 122/82 116/65 Pulse Oximetry 86 L 91 Oxygen Delivery Me thod Room Air Room Air Fraction of Inspir ed Oxygen 05/01/24 07:00 05/01/24 07:00 05/01/24 07:34 Temperature 97.5 F L Pulse Rate 85 Pulse Rate [Left] 82 82 Respiratory Rate 18 18 Blood Pressure [Le ft Arm] 131/94 H Pulse Oximetry 87 L Oxygen Delivery Me thod Room Air Fraction of Inspir ed Oxygen 05/01/24 08:36 05/01/24 08:36 05/01/24 11:00 Temperature 97.9 F Pulse Rate Pulse Rate [Left] 96 Respiratory Rate 22 Blood Pressure [Le ft Arm] 110/60 Pulse Oximetry 87 L Oxygen Delivery Me thod BiPAP Room Air Fraction of Inspir ed Oxygen 0.21 21 Documenting provider has reviewed patient's vital signs: yes DS: Data Data Completed and Pending Labs on day of discharge: Labs from last 24 hours 05/01/24 05/01/24 08:10 06:09 ABG pH 7.34 L ABG pCO2 53 H ABG pO2 52.5 L ABG HCO3 35 H ABG Total CO2 31 H ABG O2 Saturation 87 L ABG Base Excess 9.0 H Sodium 135 Potassium 3.5 L Chloride 95 L Carbon Dioxide 34 H Anion Gap 6 L BUN 17 Creatinine 0.6 Estimated Creat Clear 136.88 Estimated GFR 111 Glucose [address] scan - chest: Radiologist's impression: INDICATION: Shortness of breath. TECHNIQUE: CT chest PE was acquired with 95 cc Isovue 370 IV contrast. COMPARISON: Chest radiograph 04/26/2024. FINDINGS: Heart and vasculature: Contrast opacification of the pulmonary arterial tree is adequate. Evaluation limited by respiratory motion but with no sign of pulmonary embolism to the segmental level. Heart size is normal. Thoracic aorta and pulmonary artery are normal in caliber. Lungs and pleura: Right hemidiaphragm elevation with right basilar atelectasis including near complete collapse of the right middle lobe. Patchy ground-glass opacities in the bilateral upper lobes with tree-in-bud nodularity in the right upper lobe. No pleural effusions, pleural thickening, or pneumothorax. Lymph nodes/mediastinum: No mediastinal, hilar, or axillary adenopathy. Thyroid gland is unremarkable. Chest wall: No masses. Bilateral gynecomastia. Upper abdomen: No acute findings. Bones: Degenerative changes. IMPRESSION: 1. No evidence of pulmonary embolism to the segmental level. 2. Bilateral upper lobe patchy ground-glass opacities with right upper lobe tree-in-bud nodularity, likely representing an infectious/inflammatory process. Discharge Plan Discharge Disposition: Home, Self-Care Date of Admission: 04/26/24 22:19 Attending Provider on Discharge: Sarabjit Kemp Primary Care Provider: Joseph Guo Condition: Unchanged Anticipated Discharge Date/Time: 05/01/24 13:34 Discharge Medications: New Anoro Ellipta 62.5-25 mcg/actuation blister with device 1 inh inhalation DAILY Qty: 60 2RF tirzepatide 2.5 mg/0.5 mL pen injector 2.5 mg subcut QWEEK Qty: 0.5 0RF Rx Instructions: for 4 weeks to treat diabetes mellitus E11.9, morbid obesity E66.01, Z68.44, Obstructive sleep apnea G47.33 Continued chlorthalidone 25 mg tablet 25 mg PO DAILY nystatin 100,000 unit/gram cream 1 applic topical BID lisinopril 10 mg tablet 10 mg PO DAILY betamethasone dipropionate 0.05 % cream 1 applic topical Q12H albuterol sulfate [Ventolin HFA] 90 mcg/actuation HFA aerosol inhaler 2 inh inhalation Q8H PRN Discharge Orders: Discharge Order (Routine); Ordered 05/01/24 Ordered By: Sarabjit Kemp Patient Education: Umeclidinium/Vilanterol (By breathing) (Anoro Ellipta), Tirzepatide (By injection) (Babs Jerome), Sleep Apnea (GEN), Obesity (GEN), BiPAP (GEN), RSV (Respiratory Syncytial Virus) Infection (DC) Additional Instructions: Stop smoking. Activity Level: Activity as Tolerated Discharge Diet: Diabetic Follow Up Appointments: Joseph Guo MD [Primary Care Provider] - 05/12/24 2:30 pm ([facility] for follow up with PCP) Forms: [facility]
--- NOTE | 2024-05-01 16:34 | PC.NURSE ---
End of shift-- Pleasant and generally cooperative, alert and oriented patient discharged to home via wheelchair with daughter. VSS and pt is afebrile. SPO2 maintained >85% on RA while sleeping, >87% on bipap and 87-88% on RA while awake. Telemetry showed NSR with 1st degree AV block and BBB and MD is aware. Expiratory wheezing noted throughout lung cruz and occasional inspiratory rhonchi. Pt continues to have a productive cough with whitish sputum per his statement. He denied nausea, tolerated a regular diet without difficulty and had an extra large BM this afternoon. Discharge education was provided including diagnosis info, symptoms to report, medications and follow up plan. No further questions asked and SL was removed with tip intact.
--- NOTE | 2024-05-03 10:51 | PC.NURSE ---
Patient called concerned that he was not sent home with a steroid and albuterol nebs. He was also requesting a spacer for his inhaler. Dr. Kemp was not on service so did discuss with Luca Vera about the case. After reviewing his chart it was felt he did not need additional steroids. Luca Vera did send in prescription for the nebs, machine and spacer for his inhaler. Did call patient back with this information. He also has concerns about the bipap machine and he was instructed to reach out to [facility] with his concerns regarding his machine.
== END 2024-05-01 15:21 | disposition home or self-care (01) | DRG 193 ==
LOC: ED 20:13 → MEDSURG 22:24
PROVIDERS: Family Medicine; Internal Medicine; Admitting Provider Family Medicine; Emergency Provider Emergency Medicine Emergency Medical Services; PCP Family Medicine; Visit Provider Family Medicine
DX: J12.1 Respiratory syncytial virus pneumonia (principal); J96.21 Acute and chronic respiratory failure with hypoxia; J96.22 Acute and chronic respiratory failure with hypercapnia; J44.0 Chronic obstructive pulmonary disease with (acute) lower respiratory infection; Z68.44 Body mass index [BMI] 60.0-69.9, adult; J44.1 Chronic obstructive pulmonary disease with (acute) exacerbation; L97.929 Non-pressure chronic ulcer of unspecified part of left lower leg with unspecified severity; L97.919 Non-pressure chronic ulcer of unspecified part of right lower leg with unspecified severity; I87.2 Venous insufficiency (chronic) (peripheral); E66.01 Morbid (severe) obesity due to excess calories; G47.33 Obstructive sleep apnea (adult) (pediatric); Z99.89 Dependence on other enabling machines and devices; Z99.81 Dependence on supplemental oxygen; R41.0 Disorientation, unspecified; E11.9 Type 2 diabetes mellitus without complications; Z79.85 Long-term (current) use of injectable non-insulin antidiabetic drugs; F17.210 Nicotine dependence, cigarettes, uncomplicated; I44.0 Atrioventricular block, first degree; I10 Essential (primary) hypertension; K21.9 Gastro-esophageal reflux disease without esophagitis
CPT/HCPCS: 36415; 36600; 71045; 71275; 80048; 82803; 83036; 83735; 84439; 84443; 84484; 85025; 85379; 87070; 87186; 87631; 93005; 94640; 94660; 97116; 97162; 97166; 97530; 97535; 99284; 99285; G0378; A9270; J0456; J0696; J1650; J2919; J7050; J7512; Q9967; S4990